=== PATIENT | female | born 1950 | race Caucasian/White ===

== ENCOUNTER 2020-08-05 14:33 | Outpatient (CLI) | payer MEDICARE, OTHER, SELFPAY ==
--- NOTE | ~2020-08-05 | DEXA_ITS ---
Bone Density Report Name: Natasha Salas Age: 70 Sex: Female Ethnicity: White Date of : 1950 Indication: osteopenia; Referring Provider: Tim Cheatham Study: Bone densitometry was performed. Exam Date: August 05, 2020 Accession number: [id number] Bone Density: Region BMD T-score Z-score Classification AP Spine (L1-L4) 0.819 -2.1 -0.1 Osteopenia Femoral Neck (Left) 0.913 0.6 2.3 Normal Total Hip (Left) 0.963 0.2 1.6 Normal Total Hip Bilateral Avg 0.941 0.0 1.4 Normal Femoral Neck (Right) 0.764 -0.8 0.9 Normal Total Hip (Right) 0.918 -0.2 1.2 Normal World Health Organization criteria for BMD impression classify patients as: Normal (T-score at or above -1.0), Osteopenia (T-score between -1.0 and -2.5), or Osteoporosis (T-score at or below -2.5). 10-year Fracture Risk(1): Major Osteoporotic Fracture 7.9% Hip Fracture 0.6% Reported Risk Factors: [place] (), Neck BMD=0.764, BMI=30.7 (1) FRAX(R) Version 3.08. Fracture probability calculated for an untreated patient. Fracture probability may be lower if the patient has received treatment. Previous Exams: Region Exam Age BMD T-score BMD Change BMD Change Date g/cm2 vs Baseline vs Previous AP Spine(L1-L4) 08/05/2020 70 0.819 -2.1 -0.059(-6.8%)# -0.003(-0.4%) 09/07/2016 66 0.822 -2.0 -0.057(-6.4%)# -0.016(-1.9%) 02/12/2014 63 0.838 -1.9 -0.040(-4.6%)# -0.040(-4.6%)# 11/11/2010 60 0.878 -1.5 Total Hip(Left) 08/05/2020 70 0.963 0.2 -0.044(-4.4%)# 0.025(2.7%) 09/07/2016 66 0.937 0.0 -0.069(-6.9%)# -0.042(-4.3%)* 02/12/2014 63 0.979 0.3 -0.028(-2.8%)# -0.028(-2.8%)# 11/11/2010 60 1.006 0.5 Total Hip(Right) 08/05/2020 70 0.918 -0.2 -0.010(-1.1%)# 0.014(1.6%) 09/07/2016 66 0.904 -0.3 -0.025(-2.6%)# -0.024(-2.5%) 02/12/2014 63 0.927 -0.1 -0.001(-0.1%)# -0.001(-0.1%)# 11/11/2010 60 0.928 -0.1 *Denotes significance at 95% confidence level, LSC for AP Spine = 0.022 g/cm2, LSC for Total Hip = 0.027 g/cm2 Clinical Information Provided by Patient: Has used the following medications: Vitamin D Patient maximum height was 68.5 Menopause Age: 41 No regular weight bearing exercise Does not regularly consume dairy products Drinks caffeinated beverages Onset of menses at age 13 Number of children 4 Impression: The patient has low bone mass, based on the Total Spine T-score. The patient has an estima
--- NOTE | ~2020-08-05 | MM_ITS ---
EXAMINATION: MM screening [facility] BI w jean-pierre HISTORY: Screening TECHNIQUE: Craniocaudal and mediolateral oblique 3-D tomosynthesis images were obtained and synthetic 2-D images were generated. CAD analysis was submitted and interpreted. COMPARISON: Comparison to multiple prior studies sequentially, with oldest reviewed study dated 12/28. BREAST PARENCHYMAL COMPOSITION: There are scattered areas of fibroglandular density. FINDINGS: There is no evidence of suspicious mass, calcification, or architectural distortion to sugg est malignancy in either breast. There has been no suspicious interval change. IMPRESSION: 1. No mammographic evidence of malignancy. 2. Recommend routine screening mammography in one year. BI-RADS Category 1: Negative Reviewed, dictated and finalized at location A. K STENOGRAPHER
== END 2020-08-05 14:34 | disposition home or self-care (01) ==
LOC: ANHIMG 14:38
PROVIDERS: PCP Family Medicine; Visit Provider Physician Assistant
DX: Z12.31 Encounter for screening mammogram for malignant neoplasm of breast (principal); Z78.0 Asymptomatic menopausal state; M85.88 Other specified disorders of bone density and structure, other site
CPT/HCPCS: 77063; 77067; 77080

== ENCOUNTER 2023-05-09 09:36 | Emergency (ER) | payer MEDICARE, OTHER, SELFPAY ==
[2023-05-09 10:01] VITALS: BP 160/84; PULSE 88; RESP 16; TEMP 36.3; O2SAT 99
--- NOTE | 2023-05-09 11:08 | ED.LOWEXIN ---
HPI - Extremity Injury (Lower) General Chief Complaint: Extremity Injury, Lower Stated Complaint: Injured knee Time Seen by Provider: 05/09/23 11:08 Source: patient, RN notes reviewed and old records reviewed Mode of arrival: ambulatory Limitations: no limitations History of Present Illness HPI Narrative: 72-year-old female presents to the [facility] with complaints of right knee pain since Tuesday. Patient states that she was on the elliptical working out and listening to music. States that she got a little excited and started dancing, felt a pull in swelling in her knee. Has been icing it. 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 Related Data Home Medications Medication Instructions Recorded Confirmed cholecalciferol (vitamin D3) 25 25 mcg PO DAILY 05/12/21 05/09/23 mcg (1,000 unit) capsule multivitamin (Daily Multi-Vitamin 2 tablet PO DAILY 02/01/22 05/09/23 tablet) Allergies Allergy/AdvReac Type Severity Reaction Status Date / Time No Known Allergies Allergy Verified 05/09/23 10:02 Review of Systems Review of Systems: All systems reviewed & are unremarkable except as noted in HPI and below Constitutional: Constitutional: Reports no additional constitutional complaints Eyes: Eyes: Reports no additional eye complaints ENT: Reports system reviewed and no additional complaints, except as documented Cardiovascular: Cardiovascular: Reports no additional cardiovascular complaints, Denies chest pain and Denies dyspnea Respiratory: Respiratory: Reports no additional respiratory complaints, Denies chest congestion, Denies cough and Denies dyspnea Gastrointestinal: Gastrointestinal: Reports no additional gastrointestinal complaints, Denies abdominal pain, Denies nausea and Denies vomiting Musculoskeletal: Musculoskeletal: Reports as per HPI, Reports arthralgias and Reports joint swelling Integumentary/Breasts: Skin/Breast: Reports system reviewed and no additional complaints, except as docu Neurologic: Reports system reviewed and no additional complaints, except as documented Psychiatric: Psychiatric: Reports no additional psychiatric complaints Allergic/Immunologic: Allergic/Immunologic: Reports no additional allergic/immunologic complaints PMFSH Past Medical History Medical History Cerumen impaction Eustachian tube dysfunction Gastroenteritis Lumbar radiculopathy Need for hepatitis C screening test Primary osteoarthritis of right hip Primary osteoarthritis of right knee Surgical History Surgical History History of cataract surgery (~01/2021) Hx of cataract surgery (~02/2021) Family History Family History Mother Diabetes mellitus Family history of osteoporosis Hypertension Family history of cardiovascular disease Family history of coronary artery disease Father Family history of alcoholism, Onset Age: 57 Family history of liver disease, Onset Age: 57 Family history of hepatitis, Onset Age: 57 Family history of kidney disease, Onset Age: 57 Sibling Acute myocardial infarction, Onset Age: 60 Social History Social History Social History: Caffeine-coffee daily Smoking status: Never smoker Alcohol intake: current Drinks per week: 7 Lack of Transportation: No Lack of Food: Never True Current Housing: I Have Housing Concerned About Future Housing: No Difficulty Paying Gas/Electric Bills: No Difficulty Paying for Meds: No Currently Unemployed: No Education: High School Diploma/GED Difficulty w/ Childcare or Family Care: No Comments At the time of my signature, I reviewed and agree with the nursing past medical, surgical, social, and family history. There is
== END 2023-05-09 11:31 | disposition home or self-care (01) ==
PROVIDERS: Emergency Provider Nurse Practitioner; PCP Internal Medicine
DX: M25.461 Effusion, right knee (principal); M17.11 Unilateral primary osteoarthritis, right knee; M16.11 Unilateral primary osteoarthritis, right hip
CPT/HCPCS: 99211; G0463

== ENCOUNTER 2023-05-23 13:40 | Emergency (ER) | payer MEDICARE, OTHER, SELFPAY ==
[2023-05-23 13:50] VITALS: BP 159/97; PULSE 74; RESP 18; TEMP 36.1; O2SAT 100
[2023-05-23 13:53] VITALS: BP 159/97; PULSE 74; RESP 18; TEMP 36.1; O2SAT 100
--- NOTE | 2023-05-23 14:10 | ED.URI ---
HPI - URI/Sore Throat General Chief Complaint: Upper Respiratory Infection Stated Complaint: SINUS CONGESITON Time Seen by Provider: 05/23/23 14:06 Source: patient and RN notes reviewed Mode of arrival: ambulatory Limitations: no limitations History of Present Illness HPI Narrative: Patient presents today with a 10 day history of nasal congestion, cough, postnasal drip, rhinorrhea, sinus pressure, sneezing. Denies fever shortness of breath. Symptoms have been worsening since onset. Denies history of asthma or COPD. She has been using DayQuil and NyQuil without much relief. She is a nonsmoker. No recent antibiotic use. Related Data Home Medications Medication Instructions Recorded Confirmed cholecalciferol (vitamin D3) 25 25 mcg PO DAILY 05/12/21 05/23/23 mcg (1,000 unit) capsule multivitamin (Daily Multi-Vitamin 2 tablet PO DAILY 02/01/22 05/23/23 tablet) Allergies Allergy/AdvReac Type Severity Reaction Status Date / Time No Known Allergies Allergy Verified 05/23/23 13:53 Review of Systems Review of Systems: CONSTITUTIONAL: Denies body aches, fever, chills, or sweats. EYES: Denies visual changes, redness, or discharge. ENT: Denies sore throat, or otalgia.+ congestion, rhinorrhea, sneezing, sinus pressure, postnasal drip CARDIOVASCULAR: Denies chest pain, palpitations, or edema. RESPIRATORY: Denies dyspnea.+ cough GASTROINTESTINAL: Denies abdominal pain, nausea, vomiting, or diarrhea. GENITOURINARY: Denies dysuria or hematuria. SKIN: Denies rash, itching, or wounds. MUSCULOSKELETAL: Denies back pain, joint pain, or myalgia. NEUROLOGIC: Denies headache, numbness, tingling, or weakness. PSYCH: Denies depression or anxiety. [facility] Past Medical History Medical History Cerumen impaction Eustachian tube dysfunction Gastroenteritis Lumbar radiculopathy Need for hepatitis C screening test Primary osteoarthritis of right hip Primary osteoarthritis of right knee Surgical History Surgical History History of cataract surgery (~01/2021) Hx of cataract surgery (~02/2021) Family History Family History Mother Diabetes mellitus Family history of osteoporosis Hypertension Family history of cardiovascular disease Family history of coronary artery disease Father Family history of alcoholism, Onset Age: 57 Family history of liver disease, Onset Age: 57 Family history of hepatitis, Onset Age: 57 Family history of kidney disease, Onset Age: 57 Sibling Acute myocardial infarction, Onset Age: 60 Social History Social History Social History: Caffeine-coffee daily Smoking status: Never smoker Alcohol intake: current Drinks per week: 7 Lack of Transportation: No Lack of Food: Never True Current Housing: I Have Housing Concerned About Future Housing: No Difficulty Paying Gas/Electric Bills: No Difficulty Paying for Meds: No Currently Unemployed: No Education: High School Diploma/GED Difficulty w/ Childcare or Family Care: No Comments At time of signature, I have reviewed and agree with nursing past medical, surgical, social and family history unless otherwise noted. Please see nursing chart for further information. There is no relevant family history pertinent to the presenting complaint Exam Narrative: GENERAL: Mildly ill-appearing, well-nourished, and in no acute distress. HEAD: Normocephalic, atraumatic. EYES: EOMI. No redness or drainage. Conjunctivae normal. ENT: Mucous membranes pink and moist. Nares congested. No rhinorrhea. TMs normal bilaterally. Throat normal. Uvula midline. Bilateral frontal and maxillary sinus tenderness. NECK: Normal AROM. Supple. No lymphadenopathy. CHEST: No resp
== END 2023-05-23 14:17 | disposition home or self-care (01) ==
PROVIDERS: Emergency Provider Nurse Practitioner; PCP Internal Medicine
DX: J01.90 Acute sinusitis, unspecified (principal)
CPT/HCPCS: 99213; G0463

== ENCOUNTER 2023-05-29 11:39 | Emergency (ER) | payer MEDICARE, OTHER, SELFPAY ==
[2023-05-29 12:06] VITALS: BP 137/90; PULSE 84; RESP 16; TEMP 36.3; O2SAT 99
--- NOTE | 2023-05-29 12:22 | ED.URI ---
HPI - URI/Sore Throat General Chief Complaint: Upper Respiratory Infection Stated Complaint: Sinus Infection Time Seen by Provider: 05/29/23 12:21 Source: patient, RN notes reviewed and old records reviewed Mode of arrival: ambulatory Limitations: no limitations History of Present Illness HPI Narrative: 72-year-old female presents to [facility] with complaints of sinus congestion and sinus pressure, headache, yellow drainage from nose that started 2 weeks ago. Patient seen at this at [facility] on Tuesday and given Augmentin, patient states no matter. Related Data Home Medications Medication Instructions Recorded Confirmed cholecalciferol (vitamin D3) 25 25 mcg PO DAILY 05/12/21 05/29/23 mcg (1,000 unit) capsule multivitamin (Daily Multi-Vitamin 2 tablet PO DAILY 02/01/22 05/29/23 tablet) Allergies Allergy/AdvReac Type Severity Reaction Status Date / Time No Known Allergies Allergy Verified 05/29/23 12:23 Review of Systems Constitutional: Constitutional: Reports no additional constitutional complaints Eyes: Eyes: Reports no additional eye complaints ENT: Reports as per HPI, Reports facial pain, Reports headache(s), Reports nasal congestion, Reports nasal discharge, Reports post nasal drip, Reports sinus pain and Reports sinus pressure Cardiovascular: Cardiovascular: Reports no additional cardiovascular complaints Respiratory: Respiratory: Reports no additional respiratory complaints Neurologic: Reports system reviewed and no additional complaints, except as documented [facility] Past Medical History Medical History Cerumen impaction Eustachian tube dysfunction Gastroenteritis Lumbar radiculopathy Need for hepatitis C screening test Primary osteoarthritis of right hip Primary osteoarthritis of right knee Surgical History Surgical History History of cataract surgery (~01/2021) Hx of cataract surgery (~02/2021) Family History Family History Mother Diabetes mellitus Family history of osteoporosis Hypertension Family history of cardiovascular disease Family history of coronary artery disease Father Family history of alcoholism, Onset Age: 57 Family history of liver disease, Onset Age: 57 Family history of hepatitis, Onset Age: 57 Family history of kidney disease, Onset Age: 57 Sibling Acute myocardial infarction, Onset Age: 60 Social History Social History Social History: Caffeine-coffee daily Smoking status: Never smoker Alcohol intake: current Drinks per week: 7 Lack of Transportation: No Lack of Food: Never True Current Housing: I Have Housing Concerned About Future Housing: No Difficulty Paying Gas/Electric Bills: No Difficulty Paying for Meds: No Currently Unemployed: No Education: High School Diploma/GED Difficulty w/ Childcare or Family Care: No Comments At the time of my signature, I reviewed and agree with the nursing past medical, surgical, social, and family history. There is no relevant family history pertinent to the patient complaint. Exam Const: General: cooperative, no acute distress, ill appearing and well nourished Nutritional Appearance: well nourished Orientation/consciousness: patient oriented x3 Limitations: no limitations HENMT: Head: normal to inspection and normocephalic Ears: external ears normal, TM's normal bilaterally, mastoids normal and Abnormal EAC present Face/Nose/Sinus: Normal external nose present, Abnormal mucous membranes and turbinates present (Swelling noted), Nasal discharge present, edema, sinus tenderness and Facial tenderness on exam of face and sinuses Face and sinus: normal facial exam and sinus tenderness Mouth: Yes Normal oral and palatal mucosa present, Yes
== END 2023-05-29 12:39 | disposition home or self-care (01) ==
PROVIDERS: Emergency Provider Registered Nurse; PCP Internal Medicine
DX: J01.90 Acute sinusitis, unspecified (principal); M16.11 Unilateral primary osteoarthritis, right hip; M17.11 Unilateral primary osteoarthritis, right knee
CPT/HCPCS: 99213; G0463

== ENCOUNTER 2023-06-03 09:34 | Outpatient (CLI) | payer MEDICARE, OTHER, SELFPAY ==
[2023-06-03 13:16] LABS: Anion Gap 10 mmol/L (8-16); Blood Urea Nitrogen 18 mg/dL (7-17); Calcium 10.1 mg/dL (8.4-10.2); Carbon Dioxide 26 mmol/L (22-30); Chloride 104 mmol/L (98-107); Estimated Glomerular Filt Rate > 60; Glucose 85 mg/dL (65-110); Potassium 4.1 mmol/L (3.4-5.0); Sodium 140 mmol/L (137-145)
== END 2023-06-03 09:35 | disposition home or self-care (01) ==
LOC: ANHGOSHLAB 09:37
PROVIDERS: PCP Internal Medicine; Visit Provider Clinical Nurse Specialist
DX: I10 Essential (primary) hypertension (principal)
CPT/HCPCS: 36415; 80048

== ENCOUNTER 2023-06-30 00:46 | Day surgery (SDC) | payer MEDICARE, OTHER, SELFPAY ==
[2023-06-08 15:09] VITALS: BMI 30.4
--- NOTE | 2023-06-28 12:11 | SUR.PREOP ---
Patient called regarding upcoming procedure. Reviewed preop instructions, appointment times, and procedure prep.
[2023-06-30 06:26] VITALS: BP 116/82; PULSE 86; RESP 18; TEMP 36.2; O2SAT 100; BMI 31.1
[2023-06-30] MEDS: LACTATED RINGERS 1,000 ML 150 ML IV CONT (06:39)
--- NOTE | 2023-06-30 07:20 | WPDANESEPPF ---
Anes - Initial Pre Proc Eval Procedure: Operation Date: 06/30/23 07:30 Proposed Procedures p Screening Colonoscopy - Franck Henning MD Date/Time: 06/30/23 07:20 Surgeon: Franck Henning MD Pre Op Diagnosis: neoplasm screening Patient Data Age: 73 Gender: F Height: 1.73 m Weight: 92.8 kg Last Vital Signs Temp 97.1 F L 06/30/23 06:26 Pulse 86 06/30/23 06:26 Resp 18 06/30/23 06:26 BP 116/82 06/30/23 06:26 Pulse Ox 100 06/30/23 06:26 O2 Del Method Room Air 06/30/23 06:26 Allergies Allergy/AdvReac Type Severity Reaction Status Date / Time No Known Allergies Allergy Verified 06/30/23 06:23 Home Medications Medication Instructions Recorded Confirmed Type cholecalciferol (vitamin D3) 25 25 mcg PO DAILY 05/12/21 06/30/23 History mcg (1,000 unit) capsule multivitamin (Daily Multi-Vitamin 2 tablet PO DAILY 02/01/22 06/30/23 History tablet) lisinopril 5 mg tablet 5 mg PO DAILY #90 tabs 05/18/23 06/30/23 Rx semaglutide 2 mg/dose (8 mg/3 mL) 2 mg subcut WEEKLY 06/03/23 06/30/23 History subcutaneous pen injector atorvastatin 20 mg tablet 20 mg PO DAILY 06/08/23 06/30/23 History fluticasone propionate 50 2 spray intranasal DAILY #16 grams 06/23/23 06/30/23 Rx mcg/actuation nasal spray,suspension (Flonase Allergy Relief) Patient hx anesthesia problems: none Family hx anesthesia problems: none Results Review: All pre-operative results and documents have been reviewed as part of the pre-operative evaluation. [facility] Past Medical History Medical History (Updated 06/06/23 @ 10:25 by MTAEO Rodriguez) Cerumen impaction Encounter for screening mammogram for breast cancer Eustachian tube dysfunction Gastroenteritis Lumbar radiculopathy Need for hepatitis C screening test Obesity (BMI 30.0-34.9) Primary osteoarthritis of right hip Primary osteoarthritis of right knee Screening for osteoporosis Surgical History Surgical History History of cataract surgery (~01/2021) Hx of cataract surgery (~02/2021) Family History Family History Mother Diabetes mellitus Family history of osteoporosis Hypertension Family history of cardiovascular disease Family history of coronary artery disease Father Family history of alcoholism, Onset Age: 57 Family history of liver disease, Onset Age: 57 Family history of hepatitis, Onset Age: 57 Family history of kidney disease, Onset Age: 57 Sibling Acute myocardial infarction, Onset Age: 60 Social History Social History Social History: Caffeine-coffee daily Smoking status: Never smoker Alcohol intake: current Drinks per week: 3 Alcohol use details: wine Substance use type: does not use Lack of Transportation: No Lack of Food: Never True Current Housing: I Have Housing Concerned About Future Housing: No Difficulty Paying Gas/Electric Bills: No Difficulty Paying for Meds: No Currently Unemployed: No Education: High School Diploma/GED Difficulty w/ Childcare or Family Care: No Living arrangements: with family Anes - Evrgioberto Final PreProcedure Day of Procedure 06/30/23 07:20 Patient weight: obese Heart: regular rate and rhythm Lungs: clear to auscultation Airway: Mallampati scale class II Neurological: alert and oriented Last oral intake: >/= 8 hours ASA classification: III Emergent: no Anesthetic plan: proceed Anesthesia type and monitoring: general GIVS and standard monitoring Results Review: All pre-operative results and documents have been reviewed as part of the pre-operative evaluation. Informed Consent: The patient's anesthetic plan and its attendant risks and benefits were discussed with the patient/family/POA. Questions were solicited and answers provided to the satisfaction
--- NOTE | 2023-06-30 07:24 | PM.HPGS ---
History of Present Illness History of Present Illness Consent: Risks, benefits, and alternatives have been discussed and questions answered. Patient agrees to proceed with procedure. Chief complaint: neoplasm screening Narrative: Natasha Salas is a 73 year old female Presents for screening colonoscopy. Patient's current weight appetite and bowel movements are normal. Patient denies abdominal pain. She has had no bleeding. Family history noncontributory. Previous colonoscopy 10 years ago was unremarkable. Review of Systems Review of Systems: Review of systems noncontributory. [facility] Past Medical History Medical History (Updated 06/30/23 @ 07:25 by Franck Henning MD) Cerumen impaction Encounter for screening mammogram for breast cancer Eustachian tube dysfunction Gastroenteritis Lumbar radiculopathy Need for hepatitis C screening test Obesity (BMI 30.0-34.9) Primary osteoarthritis of right hip Primary osteoarthritis of right knee Screening for osteoporosis Surgical History Surgical History History of cataract surgery (~01/2021) Hx of cataract surgery (~02/2021) Family History Family History Mother Diabetes mellitus Family history of osteoporosis Hypertension Family history of cardiovascular disease Family history of coronary artery disease Father Family history of alcoholism, Onset Age: 57 Family history of liver disease, Onset Age: 57 Family history of hepatitis, Onset Age: 57 Family history of kidney disease, Onset Age: 57 Sibling Acute myocardial infarction, Onset Age: 60 Social History Social History Social History: Caffeine-coffee daily Smoking status: Never smoker Alcohol intake: current Drinks per week: 3 Alcohol use details: wine Substance use type: does not use Lack of Transportation: No Lack of Food: Never True Current Housing: I Have Housing Concerned About Future Housing: No Difficulty Paying Gas/Electric Bills: No Difficulty Paying for Meds: No Currently Unemployed: No Education: High School Diploma/GED Difficulty w/ Childcare or Family Care: No Living arrangements: with family Meds Home Medications and Allergies Home Medications Medication Instructions Recorded Confirmed Type cholecalciferol (vitamin D3) 25 25 mcg PO DAILY 05/12/21 06/30/23 History mcg (1,000 unit) capsule multivitamin (Daily Multi-Vitamin 2 tablet PO DAILY 02/01/22 06/30/23 History tablet) lisinopril 5 mg tablet 5 mg PO DAILY #90 tabs 05/18/23 06/30/23 Rx semaglutide 2 mg/dose (8 mg/3 mL) 2 mg subcut WEEKLY 06/03/23 06/30/23 History subcutaneous pen injector atorvastatin 20 mg tablet 20 mg PO DAILY 06/08/23 06/30/23 History fluticasone propionate 50 2 spray intranasal DAILY #16 grams 06/23/23 06/30/23 Rx mcg/actuation nasal spray,suspension (Flonase Allergy Relief) Allergies Allergy/AdvReac Type Severity Reaction Status Date / Time No Known Allergies Allergy Verified 06/30/23 06:23 Vital Signs Vital Signs - 24 hr 06/30/23 06:26 Temperature 97.1 F L Pulse Rate 86 Respiratory Rate 18 Blood Pressure 116/82 Pulse Oximetry 100 Oxygen Delivery Room Air Exam Narrative: Physical exam reveals patient to be alert. Vital signs stable. HEENT exam is unremarkable. Patient is anicteric. Lungs are clear to auscultation and percussion. Heart is without murmur or extra sounds. Abdomen bowel sounds are present soft nontender with no organomegaly. Digital external rectal exam is normal. Assessment and Plan Assessment and plan (1) Encounter for screening colonoscopy: Code(s): Z12.11 - Encounter for screening for malignant neoplasm of colon Status: Acute Assessment and Plan: Patient presents for screening
[2023-06-30 07:46] VITALS: BP 129/76; PULSE 72; RESP 16; O2SAT 100
[2023-06-30 07:56] VITALS: BP 116/62; PULSE 70; RESP 18; O2SAT 100
[2023-06-30 08:06] VITALS: BP 113/73; PULSE 68; RESP 18; O2SAT 100
== END 2023-06-30 08:17 | disposition home or self-care (01) ==
PROVIDERS: PCP Internal Medicine; Visit Provider Internal Medicine Gastroenterology
PROC: 0DJD8ZZ Inspection of Lower Intestinal Tract, Via Natural or Artificial Opening Endoscopic (ICD-10-PCS; CPT 45378; principal; 2023-06-30 07:30)
DX: Z12.11 Encounter for screening for malignant neoplasm of colon (principal); K64.8 Other hemorrhoids; K57.30 Diverticulosis of large intestine without perforation or abscess without bleeding; E66.9 Obesity, unspecified; Z68.31 Body mass index [BMI] 31.0-31.9, adult
CPT/HCPCS: G0121; J2704; J7120

== ENCOUNTER 2023-07-11 13:48 | Outpatient (CLI) | payer MEDICARE, OTHER, SELFPAY ==
--- NOTE | ~2023-07-11 | MM_ITS ---
EXAMINATION: MM screening [facility] BI w jean-pierre HISTORY: Screening mammogram TECHNIQUE: Craniocaudal and mediolateral oblique 3-D tomosynthesis images were obtained and synthetic 2-D images were generated. CAD analysis was submitted and interpreted. COMPARISON: 08/05/2020, 09/07/2016, 02/13/2015 BREAST PARENCHYMAL COMPOSITION: There are scattered areas of fibroglandular density. FINDINGS: No suspicious mass, calcification, or architectural distortion are identified in either tello ast to suggest malignancy. There has been no suspicious interval change. IMPRESSION: 1. No mammographic evidence of malignancy. 2. Recommend routine screening mammography in one year. BI-RADS Category 1: Negative Reviewed, dictated and finalized at location A.
--- NOTE | ~2023-07-11 | DEXA_ITS ---
Bone Density Report Name: BOBBY SIMPSON Age: 73 Sex: Female Ethnicity: White Date of : 1950 Indication: osteopenia; height loss; postmenopausal Referring Provider: LOIS CHAPA Study: Bone densitometry was performed. Exam Date: July 11, 2023 Accession number: [id number] Bone Density: Region BMD T-score Z-score Classification AP Spine(L1-L4) 0.800 -2.2 -0.1 Osteopenia Femoral Neck (Left) 0.883 0.3 2.2 Normal Total Hip (Left) 0.949 0.1 1.6 Normal Femoral Neck (Right) 0.749 -0.9 1.0 Normal Total Hip (Right) 0.890 -0.4 1.1 Normal Total Hip Mean 0.920 -0.2 1.4 Normal World Health Organization criteria for BMD impression classify patients as: Normal (T-score at or above -1.0), Osteopenia (T-score between -1.0 and -2.5), or Osteoporosis (T-score at or below -2.5). 10-year Fracture Risk(1): Major Osteoporotic Fracture 8.4% Hip Fracture 0.8% Reported Risk Factors: [place] (), Neck BMD=0.749, BMI=32.4 (1) FRAX(R) Version 3.08. Fracture probability calculated for an untreated patient. Fracture probability may be lower if the patient has received treatment. Previous Exams: Region Exam Age BMD T-score BMD Change BMD Change Date g/cm2 vs Baseline vs Previous AP Spine (L1-L4) 07/11/2023 73 0.800 -2.2 -0.038 (-4.6%) -0.019 (-2.4%) 08/05/2020 70 0.819 -2.1 -0.019 (-2.3%) -0.003 (-0.4%) 09/07/2016 66 0.822 -2.0 -0.016 (-1.9%) -0.016 (-1.9%) 02/12/2014 63 0.838 -1.9 Total Hip(Left) 07/11/2023 73 0.949 0.1 -0.030 (-3.0%) -0.013 (-1.4%) 08/05/2020 70 0.963 0.2 -0.016 (-1.7%) 0.025 (2.7%) 09/07/2016 66 0.937 0.0 -0.042 (-4.3%) -0.042 (-4.3%) 02/12/2014 63 0.979 0.3 Total Hip(Right) 07/11/2023 73 0.890 -0.4 -0.037 (-4.0%) -0.028 (-3.0%) 08/05/2020 70 0.918 -0.2 -0.009 (-1.0%) 0.014 (1.6%) 09/07/2016 66 0.904 -0.3 -0.024 (-2.5%) -0.024 (-2.5%) 02/12/2014 63 0.927 -0.1 *Denotes significance at 95% confidence level, LSC for AP Spine = 0.022 g/cm2, LSC for Total Hip = 0.027 g/cm2 Clinical Information Provided by Patient: Has used the following medications: Vitamin D Patient maximum height was 68.5 Menopause Age: 40 Drinks caffeinated beverages Onset of menses at age 13 Number of children 4 Impression: The patient has low bone mass, based on the Total Spine T-score. The patient has an estimated ten-year risk of hip fracture
== END 2023-07-11 13:49 | disposition home or self-care (01) ==
LOC: ANHIMG 13:51
PROVIDERS: PCP Internal Medicine; Visit Provider Clinical Nurse Specialist
DX: Z12.31 Encounter for screening mammogram for malignant neoplasm of breast (principal); Z78.0 Asymptomatic menopausal state; M85.88 Other specified disorders of bone density and structure, other site
CPT/HCPCS: 77063; 77067; 77080

== ENCOUNTER 2023-08-16 08:50 | Emergency (ER) | payer MEDICARE, OTHER, SELFPAY ==
[2023-08-16 08:57] VITALS: BP 117/71; PULSE 102; RESP 16; TEMP 36.6; O2SAT 100
--- NOTE | 2023-08-16 09:12 | ED.FEMALEGU ---
HPI - Female Genitourinary General Chief complaint: Urogenital-Female Stated complaint: Uti symptoms;Strep symptoms Time Seen by Provider: 08/16/23 09:13 Source: patient and RN notes reviewed Mode of arrival: ambulatory Limitations: no limitations History of Present Illness HPI Narrative: 73-year-old female presents with multiple complaints. She reports about 5 days ago she began having malaise, malodorous urine, urinary urgency, she increased her water intake. She reports on Tuesday she began having cough, runny nose, sore throat. She reports sinus pressure and postnasal drainage. 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 MD elicited complaint: UTI Related Data Home Medications Medication Instructions Recorded Confirmed cholecalciferol (vitamin D3) 25 25 mcg PO DAILY 05/12/21 08/16/23 mcg (1,000 unit) capsule multivitamin (Daily Multi-Vitamin 2 tablet PO DAILY 02/01/22 08/16/23 tablet) atorvastatin 20 mg tablet 20 mg PO DAILY 06/08/23 08/16/23 Allergies Allergy/AdvReac Type Severity Reaction Status Date / Time No Known Allergies Allergy Verified 08/16/23 09:37 Review of Systems Review of Systems: CONSTITUTIONAL: Denies malaise, chills, sweats, or fever. CARDIOVASCULAR: Denies chest pain, palpitations, or edema. HEENT: Reports sore throat, rhinorrhea, nasal congestion postnasal drainage RESPIRATORY: Reports cough. Denies dyspnea. GASTROINTESTINAL: Denies abdominal pain, nausea, vomiting, diarrhea GENITOURINARY: Reports mild odorous urine, frequency. Denies dysuria urgency, suprapubic pressure. Denies flank pain or hematuria. SKIN: Denies rash or itching. MUSCULOSKELETAL: Denies back pain or myalgia. All systems reviewed & are unremarkable except as noted in HPI and below PMFSH Past Medical History Medical History (Updated 08/16/23 @ 09:41 by Prudence Paniagua NP) Cerumen impaction Encounter for screening mammogram for breast cancer Eustachian tube dysfunction Gastroenteritis Lumbar radiculopathy Need for hepatitis C screening test Obesity (BMI 30.0-34.9) Primary osteoarthritis of right hip Primary osteoarthritis of right knee Screening for osteoporosis Surgical History Surgical History History of cataract surgery (~01/2021) Hx of cataract surgery (~02/2021) Family History Family History Mother Diabetes mellitus Family history of osteoporosis Hypertension Family history of cardiovascular disease Family history of coronary artery disease Father Family history of alcoholism, Onset Age: 57 Family history of liver disease, Onset Age: 57 Family history of hepatitis, Onset Age: 57 Family history of kidney disease, Onset Age: 57 Sibling Acute myocardial infarction, Onset Age: 60 Social History Social History Social History: Caffeine-coffee daily Smoking status: Never smoker Alcohol intake: current Drinks per week: 3 Alcohol use details: wine Substance use type: does not use Lack of Transportation: No Lack of Food: Never True Current Housing: I Have Housing Concerned About Future Housing: No Difficulty Paying Gas/Electric Bills: No Difficulty Paying for Meds: No Currently Unemployed: No Education: High School Diploma/GED Difficulty w/ Childcare or Family Care: No Living arrangements: with family Comments At time of signature, agree with nursing past medical, surgical, social and family history. There is no relevant family history pertinent to the presenting complaint Exam Narrative: GENERAL: Well-appearing, well-nourished, and in no acute distress. HEAD: Normocephalic EYES: PERRLA, conjunctivae clear ENT: Nares clear, clear discharge. Mucous membranes moist. TM pearly ewing with sharp light reflex bilaterally; no tragal tenderness. Oropharynx more erythematous wi
== END 2023-08-16 09:45 | disposition home or self-care (01) ==
PROVIDERS: Emergency Provider Nurse Practitioner; PCP Internal Medicine
DX: N39.0 Urinary tract infection, site not specified (principal); U07.1 COVID-19; Z20.822 Contact with and (suspected) exposure to COVID-19
CPT/HCPCS: 81003; 87081; 87086; 87426; 87804; 87880; 99213; G0463

== ENCOUNTER 2023-11-07 08:36 | Emergency (ER) | payer MEDICARE, OTHER, SELFPAY ==
--- NOTE | 2023-11-07 08:44 | ED.URI ---
HPI - URI/Sore Throat General Chief Complaint: Upper Respiratory Infection Stated Complaint: Sore Throat/Cough Time Seen by Provider: 11/07/23 09:00 Source: patient, RN notes reviewed and old records reviewed Mode of arrival: ambulatory Limitations: no limitations History of Present Illness HPI Narrative: 73-year-old female presents to the [facility] with complaints of sore throat, dry cough, sinus pain and pressure both maxillary and frontal. States symptoms have been for over a week. 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 Has tried multiple [id number] products which she states is not working. Today symptoms got worse. Onset (ago): week(s) (Over 1 week) Treatments prior to arrival: cold medicine Related Data Home Medications Medication Instructions Recorded Confirmed cholecalciferol (vitamin D3) 25 25 mcg PO DAILY 05/12/21 11/07/23 mcg (1,000 unit) capsule multivitamin (Daily Multi-Vitamin 2 tablet PO DAILY 02/01/22 11/07/23 tablet) Allergies Allergy/AdvReac Type Severity Reaction Status Date / Time No Known Allergies Allergy Verified 08/16/23 09:37 Review of Systems Review of Systems: All systems reviewed & are unremarkable except as noted in HPI and below Constitutional: Constitutional: Reports no additional constitutional complaints Eyes: Eyes: Reports no additional eye complaints ENT: Reports as per HPI, Reports nasal congestion and Reports sore throat Cardiovascular: Cardiovascular: Reports no additional cardiovascular complaints, Denies chest pain and Denies dyspnea Respiratory: Respiratory: Reports as per HPI, Denies chest congestion, Reports cough and Denies dyspnea Gastrointestinal: Gastrointestinal: Reports no additional gastrointestinal complaints, Denies abdominal pain, Denies nausea and Denies vomiting Musculoskeletal: Musculoskeletal: Reports no additional musculoskeletal complaints Integumentary/Breasts: Skin/Breast: Reports system reviewed and no additional complaints, except as docu Neurologic: Reports system reviewed and no additional complaints, except as documented Psychiatric: Psychiatric: Reports no additional psychiatric complaints Allergic/Immunologic: Allergic/Immunologic: Reports no additional allergic/immunologic complaints PMFSH Past Medical History Medical History Cerumen impaction Encounter for screening mammogram for breast cancer Eustachian tube dysfunction Gastroenteritis Lumbar radiculopathy Need for hepatitis C screening test Obesity (BMI 30.0-34.9) Primary osteoarthritis of right hip Primary osteoarthritis of right knee Screening for osteoporosis Surgical History Surgical History History of cataract surgery (~01/2021) Hx of cataract surgery (~02/2021) Family History Family History Mother Diabetes mellitus Family history of osteoporosis Hypertension Family history of cardiovascular disease Family history of coronary artery disease Father Family history of alcoholism, Onset Age: 57 Family history of liver disease, Onset Age: 57 Family history of hepatitis, Onset Age: 57 Family history of kidney disease, Onset Age: 57 Sibling Acute myocardial infarction, Onset Age: 60 Social History Social History Social History: Caffeine-coffee daily Smoking status: Never smoker Alcohol intake: current Drinks per week: 3 Alcohol use details: wine Substance use type: does not use Lack of Transportation: No Lack of Food: Never True Current Housing: I Have Housing Concerned About Future Housing: No Difficulty Paying Gas/Electric Bills: No Difficulty Paying for Meds: No Currently Unemployed: No Education: High School Diploma/GED Difficulty w/ Childcare or Family Care: No Living arrangem
[2023-11-07 08:48] VITALS: BP 119/91; PULSE 85; RESP 16; TEMP 36.2; O2SAT 100
== END 2023-11-07 09:16 | disposition home or self-care (01) ==
PROVIDERS: Emergency Provider Nurse Practitioner; PCP Internal Medicine
DX: J32.9 Chronic sinusitis, unspecified (principal)
CPT/HCPCS: 87081; 87880; 99213; G0463

== ENCOUNTER 2023-12-20 08:27 | Outpatient (CLI) | payer MEDICARE, OTHER, SELFPAY ==
[2023-12-20 12:49] LABS: Basophils Absolute Auto 0.1 K/mm3 (0.0-0.1); Basophils Percent Auto 1.2 % (0.2-1.2); Eosinophils Absolute Auto 0.3 K/mm3 (0-0.3); Eosinophils Percent Auto 5.1 % (0-4.4); Hematocrit 42.6 % (37.0-47.0); Immature Granulocyte Absolute 0.01 K/mm3 (0.00-0.031); Immature Granulocyte Percent A 0.2 % (0-0.5); Lymphocytes Absolute Auto 1.52 K/mm3 (0.9-3.2); Lymphocytes Percent Auto 29.6 % (18.3-44.2); Mean Corpuscular HGB Conc 32.9 g/dl (32-36); Mean Corpuscular Hemoglobin 30.4 pg (26-34); Mean Corpuscular Volume 92.6 fl (80-100); Mean Platelet Volume 11.1 fl (7.4-10.4); Monocytes Absolute Auto 0.5 K/mm3 (0.1-0.6); Monocytes Percent Auto 9.9 % (2.6-8.5); Neutrophils Absolute Auto 2.8 K/mm3 (1.3-6.7); Platelet Count Result 263 k/mm3 (150-375); Red Cell Distribution Width 12.8 % (11.5-14.5); White Blood Count 5.1 K/mm3 (4.5-10.0)
[2023-12-20 13:15] LABS: Alanine Aminotransferase 26 U/L (6-35); Albumin Level 4.5 g/dL (3.5-5.1); Alkaline Phosphatase 67 U/L (38-126); Anion Gap 8 mmol/L (4-12); Aspartate Amino Transferase 45 U/L (14-36); Bilirubin,Total 1.5 mg/dL (0.2-1.3); Blood Urea Nitrogen 15 mg/dL (7-17); Calcium 9.7 mg/dL (8.4-10.2); Carbon Dioxide 23 mmol/L (22-30); Chloride 107 mmol/L (98-107); Cholesterol 141 mg/dL (0-200); Estimated Glomerular Filt Rate > 60; Glucose 96 mg/dL (65-110); HDL Direct 64 mg/dL; Potassium 4.1 mmol/L (3.4-5.0); Sodium 138 mmol/L (137-145); Triglycerides 138 mg/dL (<150)
[2023-12-20 13:38] LABS: LDL Cholesterol Direct 61 mg/dL
[2023-12-20 13:49] LABS: Hemoglobin A1C 5.1 % (<5.7)
[2023-12-20 14:08] LABS: Vitamin D 25 Hydroxy 62.9 ng/mL
== END 2023-12-20 08:28 | disposition home or self-care (01) ==
PROVIDERS: PCP Internal Medicine; Visit Provider Clinical Nurse Specialist
DX: E78.5 Hyperlipidemia, unspecified (principal); I10 Essential (primary) hypertension; Z13.0 Encounter for screening for diseases of the blood and blood-forming organs and certain disorders involving the immune mechanism; Z13.228 Encounter for screening for other metabolic disorders; Z13.29 Encounter for screening for other suspected endocrine disorder; E55.9 Vitamin D deficiency, unspecified; R73.01 Impaired fasting glucose
CPT/HCPCS: 36415; 80053; 80061; 82306; 83036; 84443; 85025

== ENCOUNTER 2024-01-04 07:59 | Outpatient (CLI) | payer MEDICARE, OTHER, SELFPAY ==
[2024-01-04 20:08] LABS: Alanine Aminotransferase 28 U/L (6-35); Albumin Level 4.4 g/dL (3.5-5.1); Alkaline Phosphatase 59 U/L (38-126); Anion Gap 9 mmol/L (4-12); Aspartate Amino Transferase 29 U/L (14-36); Bilirubin,Total 1.3 mg/dL (0.2-1.3); Blood Urea Nitrogen 12 mg/dL (7-17); Calcium 9.6 mg/dL (8.4-10.2); Carbon Dioxide 23 mmol/L (22-30); Chloride 108 mmol/L (98-107); Estimated Glomerular Filt Rate > 60; Glucose 73 mg/dL (65-110); Potassium 4.5 mmol/L (3.4-5.0); Sodium 140 mmol/L (137-145)
== END 2024-01-04 08:00 | disposition home or self-care (01) ==
PROVIDERS: PCP Internal Medicine; Visit Provider Clinical Nurse Specialist
DX: R74.01 Elevation of levels of liver transaminase levels (principal)
CPT/HCPCS: 36415; 80053

== ENCOUNTER 2024-01-10 09:31 | Outpatient (CLI) | payer MEDICARE, OTHER, SELFPAY ==
--- NOTE | 2024-01-26 10:22 | WPDHOMESLEEP ---
Sleep Study - Home Unattended Date of Study: 01/10/24 Ordering Provider: MAIA Rodriguez-C Interpreting Provider: Praveena Mason, DO Home Sleep Study Type: Watch PAT Height: 1.74 m Weight: 87.997 kg Body Mass Index: 29.0 Neck Circumference (inches): 14.5 [place]: 0 Reason for Sleep Study Snoring Sleep History The patient is a 73-year-old female that had a sleep study ordered by her primary care for evaluation of sleep apnea. The patient denies awakening from sleep short of breath. She occasionally awakens at night with heartburn, belching or cough. She is unsure if she snores. She rarely has trouble sleeping when she has a cold. She denies waking up gasping for air throughout the night. She denies having breathing problems at night observed by herself or others. She occasionally sweats excessively at night. She denies having heart palpitations or irregular heartbeats during the night. She denies falling asleep during the day and while driving. She denies sleep paralysis, cataplexy and hypnagogic / hypnopompic hallucinations. She denies having trouble at school or work due to sleepiness. She denies feeling afraid of going to sleep. She denies having nightmares. She denies remembering her dreams. She occasionally has thoughts racing through her mind. She denies feeling sad, depressed or anxious. She denies having muscular tension. She denies noticing parts of her body jerk. She denies kicking during night. She denies having crawling and aching feelings in her legs and denies leg pain. She occasionally grinds her teeth during sleep but never awakens with morning jaw pain. She is occasionally bothered by pain during the day occasionally awakened by pain during the night. She rarely wakes up feeling stiff in the morning. She rarely wakes up with sore or achy muscles. He rarely wakes up with pain neck spine joints. She goes to bed at 8:30 p.m. on weekdays and at 9:00 p.m. on the weekends. It takes her 10-30 minutes to fall asleep. She wakes up twice throughout the night to urinate and is usually able to fall back asleep immediately. She wakes up at 6:00 a.m. on weekdays and at 7:30 a.m. on the weekends. She typically gets 6-8 hours of sleep per night. She stays bed for 15 minutes after waking up in the morning. She currently lives with her significant other. She denies consuming any caffeinated beverages within 2 hours of bedtime. She denies engaging in physical exercise before bedtime. She will read watch television before falling asleep. She denies taking naps in the afternoon or the evening. She consumes 2 cups of caffeinated beverage per day. He consumes 1-2 glasses of alcohol per week. She denies tobacco and recreational drug use. [facility] Past Medical History Medical History Cerumen impaction Encounter for screening mammogram for breast cancer Eustachian tube dysfunction Gastroenteritis Lumbar radiculopathy Need for hepatitis C screening test Obesity (BMI 30.0-34.9) Primary osteoarthritis of right hip Primary osteoarthritis of right knee Screening for osteoporosis Surgical History Surgical History History of cataract surgery (~01/2021) Hx of cataract surgery (~02/2021) Family History Family History Mother Diabetes mellitus Family history of osteoporosis Hypertension Family history of cardiovascular disease Family history of coronary artery disease Father Family history of alcoholism, Onset Age: 57 Family history of liver disease, Onset Age: 57 Family history of hepatitis, Onset Age: 57 Family history of kidney disease, Onset Age: 57 Sibling Acute myocardial infarction, Onset Age: 60 Social History Social History Soci
[2024-01-26 10:26] VITALS: BMI 29.0
== END 2024-01-16 09:39 | disposition home or self-care (01) ==
LOC: ANHCSM 09:32
PROVIDERS: PCP Internal Medicine; Visit Provider Clinical Nurse Specialist
DX: G47.10 Hypersomnia, unspecified (principal); G47.33 Obstructive sleep apnea (adult) (pediatric)
CPT/HCPCS: 95800

== ENCOUNTER 2024-05-28 11:14 | Emergency (ER) | payer MEDICARE, OTHER, SELFPAY ==
--- NOTE | ~2024-05-28 | XR_ITS ---
EXAMINATION: XR hip RT min 2V DATE: 05/28/2024 12:26 INDICATION: Right hip pain. Fall. TECHNIQUE: 2 views of right hip were obtained. COMPARISON: None. FINDINGS: Alignment is normal. No fracture. There is severe right hip osteoarthritis. Osteitis pubis is noted. IMPRESSION: 1. Severe right hip osteoarthritis. Reviewed, dictated and finalized at location A. MAKER
--- NOTE | ~2024-05-28 | XR_ITS ---
EXAMINATION: XR knee RT min 4V DATE: 05/28/2024 12:26 INDICATION: Right knee pain. Fall. TECHNIQUE: 4 views of right knee were obtained. COMPARISON: None. FINDINGS: Bone alignment is normal. No fracture. There is moderate osteoarthritis of lateral compartm ent and mild osteoarthritis of medial and patellofemoral compartments. There is an enthesophyte at th e proximal attachment of medial collateral ligament. No knee joint effusion. IMPRESSION: 1. Moderate right knee osteoarthritis. Reviewed, dictated and finalized at location A. [employer]
[2024-05-28 11:32] VITALS: BP 130/100; PULSE 94; RESP 15; TEMP 36.6; O2SAT 99
--- NOTE | 2024-05-28 12:02 | ED.LOWEXIN ---
HPI - Extremity Injury (Lower) General Chief Complaint: Extremity Injury, Lower Stated Complaint: LOW BACK/R KNEE INJURY Time Seen by Provider: 05/28/24 12:02 Source: patient Mode of arrival: ambulatory Limitations: no limitations History of Present Illness HPI Narrative: 73 yo F presents with c/o pain to R knee and R hip. Also reports pain to low back radiating to R buttock and R leg. think i aggravated my sciatica . pt was getting out xmas decorations and missed a step when climbing down and fell off the ladder. Was almost to bottom of ladder when she fell. did not hit head. No LOC. R knee twisted and fell onto R hip. ambulatory with steady gait. 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 all systems reviewed and negative except as noted above. Related Data Home Medications Medication Instructions Recorded Confirmed cholecalciferol (vitamin D3) 25 25 mcg PO DAILY 05/12/21 05/28/24 mcg (1,000 unit) capsule multivitamin (Daily Multi-Vitamin 2 tablet PO DAILY 02/01/22 05/28/24 tablet) Allergies Allergy/AdvReac Type Severity Reaction Status Date / Time No Known Allergies Allergy Verified 05/28/24 11:20 Review of Systems Review of Systems: CONSTITUTIONAL: Denies fever, chills, or sweats. EYES: Denies visual changes, redness, or discharge. ENT: Denies rhinorrhea, congestion, sore throat, or otalgia. CARDIOVASCULAR: Denies chest pain, palpitations, or edema. RESPIRATORY: Denies cough or dyspnea. GASTROINTESTINAL: Denies abdominal pain, nausea, vomiting, or diarrhea. GENITOURINARY: Denies dysuria or hematuria. SKIN: Denies rash or itching. MUSCULOSKELETAL: Reports low back pain, right hip pain and right knee pain. NEUROLOGIC: Denies headache, numbness, or weakness. PSYCHIATRIC: Denies anxiety or depression. All other systems reviewed are negative, except as documented in HPI. [facility] Past Medical History Medical History (Updated 05/29/24 @ 00:00 by Background Daemon) Cerumen impaction Elevated blood pressure reading Encounter for screening mammogram for breast cancer Eustachian tube dysfunction Gastroenteritis Lumbar radiculopathy Need for hepatitis C screening test Obesity (BMI 30.0-34.9) Primary osteoarthritis of right hip Primary osteoarthritis of right knee Screening for osteoporosis Surgical History Surgical History History of cataract surgery (~01/2021) Hx of cataract surgery (~02/2021) Family History Family History Mother Diabetes mellitus Family history of osteoporosis Hypertension Family history of cardiovascular disease Family history of coronary artery disease Father Family history of alcoholism, Onset Age: 57 Family history of liver disease, Onset Age: 57 Family history of hepatitis, Onset Age: 57 Family history of kidney disease, Onset Age: 57 Sibling Acute myocardial infarction, Onset Age: 60 Social History Social History Social History: Caffeine-coffee daily Smoking status: Never smoker Alcohol intake: current Drinks per week: 3 Alcohol use details: wine Substance use type: does not use Do You Feel Safe in your Home?: Yes Lack of Transportation: No Lack of Food: Never True Current Housing: I Have Housing Concerned About Future Housing: No Difficulty Paying Gas/Electric Bills: No Difficulty Paying for Meds: No Currently Unemployed: No Education: High School Diploma/GED Difficulty w/ Childcare or Family Care: No Living arrangements: with family Comments At time of signature, agree with nursing past medical, surgical, social and family history. There is no relevant family history pertinent to the presenting complaint. Exam Narrative: GENERAL: This is a well-nourished, well-developed patient, in no apparent distress. HEAD: normocephalic, atraumatic. EYES: PERRL. Sclera clear/white. Vision is grossly intact. EARS: External ears normal NOSE: External nose normal NECK: Neck supple, non-tender without lymphadenopathy, masses or thyromegaly. CARDIOVASCULAR: Regular rate and rhythm without murmurs, gallops, or rubs. RESPIRATORY: Clear to auscultation. Breath sounds equal bilaterally. No wheezes, rales, or rhonchi. SKIN: warm, Dry, intact with no suspicious lesions or rash, good texture and turgor. NEURO: awake, alert, and oriented to person, place and time. There were no obvious focal neurologic abnormalities. EXTREMITIES: Tenderness to anterior and medial aspect of right knee. Mild swelling noted. Negative anterior and posterior drawer testing. No effusion noted. Range of motion intact. R hip tenderness, lateral and anterior aspect, great trochanter. normal ROM BACK: Generalized muscular tenderness to low back. No midline tenderness. Tenderness to right SI joint. Lower extremity strength 5/5 bilaterally. Course Course Level of Care: Express Care Visit Vital Signs Vital signs: Vital Signs Temperature 36.6 C 05/28/24 11:32 Pulse Rate 94 05/28/24 11:32 Respiratory Rate 15 05/28/24 11:32 Blood Pressure 130/100 H 05/28/24 11:32 Pulse Oximetry 99 05/28/24 11:32 Oxygen Delivery Room Air 05/28/24 11:32 Temperature 36.6 C 05/28/24 11:32 Pulse Rate 94 05/28/24 11:32 Respiratory Rate 15 05/28/24 11:32 Blood Pressure 130/100 H 05/28/24 11:32 Pulse Oximetry 99 05/28/24 11:32 Oxygen Delivery Room Air 05/28/24 11:32 MDM - Extremity Injury (Lower) MDM Narrative Medical decision making narrative: x-ray of right hip and right knee normal. No fracture noted. Will treat patient with steroids, muscle relaxant for sciatica pain patient given sciatica stretches. Patient ambulatory with steady gait. No neuro deficits. Patient is aware of diagnosis, understands and agrees to treatment plan. Anticipatory guidance given. Patient agrees to follow-up as directed and is aware of reasons to seek care at the emergency department. Portions of this record may have been created with voice recognition software Differential Diagnosis Differential diagnosis: Likely other ( Right knee sprain, sciatica, right hip contusion, right knee contusion, right knee fracture) Imaging Data My impression: Agree with radiologist Radiologist's impression: EXAMINATION: XR knee RT min 4V DATE: 05/28/2024 12:26 INDICATION: Right knee pain. Fall. TECHNIQUE: 4 views of right knee were obtained. COMPARISON: None. FINDINGS: Bone alignment is normal. No fracture. There is moderate osteoarthritis of lateral compartment and mild osteoarthritis of medial and patellofemoral compartments. There is an enthesophyte at the proximal attachment of medial collateral ligament. No knee joint effusion. IMPRESSION: 1. Moderate right knee osteoarthritis. Discharge Plan Discharge Clinical Impression: Acute low back pain with right-sided sciatica, Contusion of knee, right Patient Disposition: Home, Self-Care Condition: Stable Instructions: Sciatica (ED), Lower Back Exercises (ED) Additional Instructions: The x-ray of your right hip and right knee was negative for fracture. Take Tylenol every 6-8 hours as needed for pain. Take methocarbamol as prescribed. This medication as a muscle relaxant may make you drowsy. Do not drive while taking it. Alternate between ice and heat. Do stretching exercises as tolerated. Follow-up with your primary care physician if symptoms are not improving. Prescriptions: New methocarbamol 500 mg tablet 500 mg PO Q6H PRN (Reason: muscle pain/spasm) Qty: 30 0RF No Action atorvastatin 20 mg tablet 20 mg PO DAILY Qty: 90 2RF losartan 25 mg tablet 25 mg PO DAILY Qty: 90 2RF cholecalciferol (vitamin D3) 25 mcg (1,000 unit) capsule 25 mcg PO DAILY multivitamin [Daily Multi-Vitamin] Tablet 2 tablet PO DAILY fluticasone propionate [Flonase Allergy Relief] 50 mcg/actuation spray,suspension 2 spray intranasal DAILY Qty: 16 0RF Rx Instructions: administer into each nostril Follow-up/Referrals: Mason Herrera DO [Primary Care Provider] - Stand Alone Forms: Work/School Release IP Time of Disposition: 12:50
== END 2024-05-28 12:55 | disposition home or self-care (01) ==
PROVIDERS: Emergency Provider Nurse Practitioner Family; PCP Internal Medicine
DX: M54.41 Lumbago with sciatica, right side (principal); S80.01XA Contusion of right knee, initial encounter; W11.XXXA Fall on and from ladder, initial encounter; E66.9 Obesity, unspecified; Z68.28 Body mass index [BMI] 28.0-28.9, adult; M17.11 Unilateral primary osteoarthritis, right knee; M16.11 Unilateral primary osteoarthritis, right hip
CPT/HCPCS: 73502; 73564; 99214; G0463

== ENCOUNTER 2024-08-16 14:22 | Outpatient (NON) | payer MEDICARE, OTHER, SELFPAY ==
--- OUTSIDE RECORDS SUMMARY | 2024-08-16 14:25 | XMS_ITS | Continuity of Care Document ---
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 Name Role Phone Hossein Santacruz MD Unavailable Unavailable Allergies, Adverse Reactions, Alerts Substance Reaction Status Criticality No Known Allergies Active No Inform ation Medications Medication Instructions Dosage Effective Dates (start - stop) Status Comments Lipitor 20 mg tablet take 1 tablet by oral route every day 20 MG - Active Vitamin D3 100 mcg (4,000 unit) capsule take 1 by oral route every day - Active Claritin-D 12 Hour 5 mg-120 mg tablet,extended release take 1 tablet by oral route every 12 hours 1.00 tablet - Active Aleve 220 mg capsule take 2 capsule by oral route 2 times every day 2 capsule - Active Vigamox 0.5 % eye drops instill 1 drop by ophthalmic route 4 times every day into operative eye for 2 weeks, then stop - No Longer Active ok to substitute Polytrim 5ml with same directions prednisolone acetate 1 % eye drops,suspension instill 1 drop by ophthalmic route 4 times every day into operative eye for 2 weeks, then 2 times per day for 2 weeks, then stop - No Longer Active ketorolac 0.5 % eye drops instill 1 drop in operative eye 4 times every day for 2 weeks, then 2 times per day for 2 weeks, then stop - No Longer Active ketorolac 0.5 % eye drops instill 1 drop in operative eye 4 times every day for 2 weeks, then 2 times per day for 2 weeks, then stop - No Longer Active prednisolone acetate 1 % eye drops,suspension instill 1 drop by ophthalmic route 4 times every day into operative eye for 2 weeks, then 2 times per day for 2 weeks, then stop - No Longer Active Vigamox 0.5 % eye drops instill 1 drop by ophthalmic route 4 times every day into operative eye for 2 weeks, then stop - No Longer Active ok to substitute Polytrim 5ml with same directions ketorolac 0.5 % eye drops instill 1 drop in operative eye 4 times every day for 2 weeks, then 2 times per day for 2 weeks, then stop - No Longer Active prednisolone acetate 1 % eye drops,suspension instill 1 drop by ophthalmic route 4 times every day into operative eye for 2 weeks, then 2 times per day for 2 weeks, then stop No Longer Active Vigamox 0.5 % eye drops instill 1 drop by ophthalmic route 4 times every day into operative eye for 2 weeks, then stop No Longer Active ok to substitute Polytrim 5ml with same directions Procedures Procedure Date No Charge Refraction Post-op Follow-up Visit Post-op Follow-up Visit Remove Cataract, Post Op Care Laser Cataract SX With Toric Lens Remove Cataract, Insert Lens,Comanaged A IOLMaster-Professional No Charge Refraction Post-op Follow-up Visit Remove Cataract, Post Op Care Remove Cataract, Insert Lens,Comanaged J Laser Cataract SX Standard IOLMaster-Professional No Charge GDX Retina Special Eye Evaluation No Charge Orbscan IOLMaster-Technical Fundus Photography W/ Report Office/outpatient Visit, New Advance Directives Directive Yes / No Effective Date File Name No Information Encounters Encounter Description Practice Location Reason(s) For Visit Diagnoses Date Provider Providers Copied on Encounter [facility], [address] [place] [address] [address], [place], [place], [id number], tel:[phone] SEC [place] Professional 1 month s/p TORIC IOL w/LensAR (chief complaint) Post op visit 1 Noam Catalan. [address], [address], [place], [place], [address], [place]. tel:[phone] Referring Provider: Brooke Durham OD, [address] [place] [address], [address]. tel:[phone] [facility], [address] [place] [address] [address], [place], [place], [id number], tel:[phone] [place] Professional 1 week s/p TORIC IOL w/LensAR (chief complaint) Post op visit 1 Noam Catalan. [address], [address], [place], [place], [address], [place]. tel:[phone] Referring Provider: Brooke Durham OD, [address] [place] [address], [address]. tel:[phone] [facility], [address] [place] [address] [address], [place], [place], [address], tel:[phone] SEC [place] Professional 1 day po Toric PCIOL OS (02/11/21) (chief complaint) Post op visit 1 Noam Catalan. [address], [place], [place], [id number], . tel:[phone] Referring Provider: Brooke Durham OD, [address] [place] [address], [address]. tel:[phone] [facility], [address], [place], [place], [address], [place] [phone] [facility] No Information 1 Noam Catalan. [address], [facility] [[email or web address] [place], [place], [address], . tel:[phone] Referring Provider: Brooke Durham OD, [address] [place] [address], [address]. tel:[phone] [facility], [address], [place], [place], [address], [place] tel:[phone] SEC Foreign [employer] Professional No Information 1 Noam Catalan. [address], [facility] [[email or web address]] [place], [address], . tel:[phone] Referring Provider: Brooke Durham OD, [address] [place] [address], [address]. tel:[phone] [facility], [id number] [place] [address] [address], [place], [place], [address], [place] tel:[phone] SEC Foreign [employer] Professional No Information 1 Noam Catalan. [address], [facility] [[email or web address] [place], [address], . tel:[phone] [facility], [address], [place], [place], [address], [place] tel:[phone] SEC Foreign [employer] Professional 2 wk po PCIOL OD (01/14/21) (chief complaint) Post op visit 1 Noam Catalan. [address], [facility] [[email or web address] [place], [id number], . tel:[phone] Referring Provider: Brooke Durham OD, [address] [place] [address], [address]. tel:[phone] [facility], [address], [place], [place], [address], [place] tel:[phone] SEC Foreign [place] Professional Post-Op (chief complaint) Post op visit 1 Noam Catalan. [address], [address] [place], [address], [place]. tel:[phone] Referring Provider: Brooke Durham OD, [address] [place] [address], [address]. tel:[phone] [facility], [address], [place], [place], [address], [place] tel:[phone] [facility] No Information 1 Noam Catalan. [address], [place], [address], [place]. tel:[phone] Referring Provider: Brooke Wentworth OD, [address] [place] [address], [address]. tel:[phone] [facility], [address], [place], [place], [address], [place] tel:[phone] SEC Foreign [employer] Professional No Information 1 Noam Catalan. [address] [facility], [address] [place], [address], [place]. tel:[phone] Referring Provider: Brooke Wentworth OD, [address] [place] [address], [address]. tel:[phone] [facility], [address], [place], [place], [address], [place] tel:[phone] SEC Tristan Garcia No Information 1 Noam Catalan. [address], [place], [address], [place]. tel:[phone] [facility], [address], [place], [place], [address], [place] [phone] SEC Ara Jade SALLY No Information 1 Noam Catalan. [address] [address], [place], [place], [address], [place]. tel:[phone] Office/outpa tient Visit, [facility], [address], [place], [place], [address], [place] tel:[phone] SEC [place] Professional Cataract evaluation (chief complaint) Anatomical narrow angle of both eyesAge-relat ed nuclear cataract, bilateralEpir etinal membrane (ERM) of right eye 1 Noam Catalan. [address], [place], [place], [address], [place]. tel:[phone] Referring Provider: Brooke Durham OD, [address] [place] [address] [place], [address]. tel:[phone] [facility], [address], [place], [place], [address], [place] [phone] SEC [place] Professional No Information 1 Noam Catalan. [address], [place], [place], [address], [place]. tel:[phone] Referring Provider: Brooke Durham OD, [address] [place] [address] [place], [address]. tel:[phone] Family History Family Member Type Diagnosis Age At Onset Problem Family history of Diabetes m damian Payers Payer name Insurance type Covered republican ID Authoriza tion(s) No Information Social History Type Description Quantity Date Captured Comments Alcohol Use Details No Caffeine Use Details No Tobacco Use Status Current non-smoker Smoking Status Never smoker Non-Smoking Tobacco Use Details : No Details Available : No Details Available Sex Female Chief Complaint And Reason For Visit From encounter dated '03/13/2021 14:45'. 1 month s/p TORIC IOL w/LensAR (chief complaint). Description: The 70 year old female presents for evaluation of 1 month s/p TORIC IOL w/LensAR in the left eye (02/11/21). Patient states [facility]. Patient will need to see referring OD if glasses needed. Reason For Referral Reason For Referral No Information Plan Of Treatment Date Type Action Status Patient Education Cataract Surgery: What to Expect at H~ completed History Of Present Illness Encounter Date Complaint History Of Prese nt Illness 1 month s/p TORIC IOL w/LensAR T he 70 year old female presents for evaluation of 1 month s/p TORIC IOL w/LensAR in the left eye (02/11/21). Patient states [facility]. Patient will need to see referring OD if glasses needed. 1 week s/p TORIC IOL w/LensAR Th e 70 year old female presents for evaluation of 1 week s/p TORIC IOL w/LensAR in the left eye (02/11/21). Patient states [facility] is [facility], patient using p/o gtts as directed. 1 day po Toric PCIOL OS (02/11/21 ) The 70 year old female presents for evaluation of 1 day po Toric PCIOL OS (02/11/21) Pt reports good comfort and vision OS. Pt was assigned Prednisolone, Ketorolac, and Vigamox QID OS. Post op instructions reviewed and understood by the pt. 2 wk po PCIOL OD (01/14/21) The 8 8 year old female presents for evaluation of 2 wk po PCIOL OD (01/14/21). Pt reports good comfort and vision OD. Pt reports taking Pred, Ketorolac, and Vigamox QID OD. Pt reports trouble driving at night. She sees glare from oncoming headlights at night. Pt reports trouble seeing street signs and small print at near such as newspapers, books, and medicine bottles x many months OS. Post-Op The 70 year old female presents for a 1 day post op CE with LENSAR and LRI OD. Patient is using Pred, Vigamox and Ketorolac qid OD. Patient denies any pain or discomfort. Cataract evaluation The 70 year old female presents for evaluation of Cataract evaluation in the right eye and left eye. Hx of CAT OU and MV CLS (soft dailies, not sure which eye is NV). Pt reports she hasn't worn her CLS for about 6 wks. Pt denies any past ocular injuries or Sx, OU. Pt reports she uses OTC AFT or allergy gtts PRN OU. Pt reports she has trouble focusing on objects up close, has trouble driving during the night time and day time and trouble recognizing people's faces from across the street, OU, x 1 yr, even with gls or CLS. Functional Status Date Functional Assessmen t No Information Instructions Date Instruction Additional Infor evangelina Impression/Plan Impression/Plan Impression/Plan Impression/Plan Impression/Plan Impression/Plan Assessments Type Assessment Date assessment Post op visit Patient Care Teams Name Effective Dates (start - stop) Status Members No Information
--- OUTSIDE RECORDS SUMMARY | 2024-08-16 14:25 | XMS_ITS | Data Portability ---
Author Organization [facility] [place] Address [address] [place] [address] Care Team Providers Care Clinical Care Leader Name Role Phone MITZIJA COLLAZO Primary Care Provider [phone] Assessment No assessment recorded. Plan of Treatment Reminders Order Date Submit Date Provider Last Modified By Organization Details Last Modified Time Details Appointments None recorded. Lab None recorded. Referral None recorded. Procedures None recorded. Surgeries None recorded. Imaging None recorded. Medication Orders Victoza 3-Jeff 0.6 mg/0.1 mL (18 mg/3 mL) subcutaneou s pen injector 2022 023 [id number], [address], [place], [id number], 3 10:12:23 Mounjaro 2.5 mg/0.5 mL subcutaneou s pen injector 2022 023 [facility], [address] [place] [address], [address], 3 10:12:17 Patient TargetsNo targets recorded. Patient InstructionsNo instructions recorded. Reason for Referral None Reported. Results Created Date Observation Date Name Description Value Unit Range Abnormal Flag Note LastModifiedBy Organization Detail LastModifiedTime 09/30/1909/29/2022 CBC W/DIF F WBC 4.9 10'3/ uL 3.6-10 .2 Not Available [facility] (Lab) [address], [place], [address], 09/30/2022 05:15:26 09/30/19 23 09/29/2022 CBC W/DIF F RBC 4.73 10'6/ uL (based on docume nted legal sex) 4.10-5 .30 Not Available [facility] (Lab) [address], [place], [address], 09/30/2022 05:15:26 09/30/19 23 09/29/2022 CBC W/DIF F HGB 13.7 g/dL (based on docume nted legal sex) 11.9-1 5.8 Not Available [facility] (Lab) [address], [place], [address], 09/30/2022 05:15:26 09/30/19 23 09/29/2022 CBC W/DIF F HCT 43.6 % (based on docume nted legal sex) 37.4-4 8.3 Not Available [facility] (Lab) [address], [place], [address], 09/30/2022 05:15:26 09/30/19 23 09/29/2022 CBC W/DIF F MCV 92.2 fL 82.0-9 9.0 Not Available [facility] (Lab) [address], [place], [address], 09/30/2022 05:15:26 09/30/19 23 09/29/2022 CBC W/DIF F MCH 29.0 pg 27.0-3 3.0 Not Available [facility] (Lab) [address], [place], [address], 09/30/2022 05:15:26 09/30/19 23 09/29/2022 CBC W/DIF F MCHC 31.4 g/dL 32.0-3 6.0 low Not Available [facility] (Lab) [address], [place], [address], 09/30/2022 05:15:26 09/30/19 23 09/29/2022 CBC W/DIF F RDW 13.2 % 11.0-1 5.0 Not Available [facility] (Lab) [address], [place], [address], 09/30/2022 05:15:26 09/30/19 23 09/29/2022 CBC W/DIF F plt 290 10'3/ uL 150-45 0 Not Available [facility] (Lab) [address], [place], [address], 09/30/2022 05:15:26 09/30/19 23 09/29/2022 CBC W/DIF F MPV 10.5 fL 9.8-12 .7 Not Available [facility] (Lab) [address], [place], [address], 09/30/2022 05:15:26 09/30/19 23 09/29/2022 CBC W/DIF F NRBC's 0.0 % 0 Not Available [facility] (Lab) [address], [place], [address], 09/30/2022 05:15:26 09/30/19 23 09/29/2022 CBC W/DIF F absolute NRBCs 0.0 10'3/ uL 0 Not Available [facility] (Lab) [address], [place], [address], 09/30/2022 05:15:26 09/30/19 23 09/29/2022 CBC W/DIF F neutrophils 52.0 % 37.0-7 2.0 Not Available [facility] (Lab) [address], [place], [address], 09/30/2022 05:15:26 09/30/19 23 09/29/2022 CBC W/DIF F lymphocytes 32.5 % 16.0-4 8.0 Not Available [facility] (Lab) [address], [place], [address], 09/30/2022 05:15:26 09/30/19 23 09/29/2022 CBC W/DIF F monocytes 10.0 % 4.0-14 .0 Not Available [facility] (Lab) [address] [place], [address], 09/30/2022 05:15:26 09/30/19 23 09/29/2022 CBC W/DIF F eosinophils 3.7 % 0.0-9. 0 Not Available [facility] (Lab) [address], [place], [address], 09/30/2022 05:15:26 09/30/19 23 09/29/2022 CBC W/DIF F basophils 1.2 % 0.0-2. 0 Not Available [facility] (Lab) [address], [place], [address], 09/30/2022 05:15:26 09/30/19 23 09/29/2022 CBC W/DIF F immature granulocytes 0.6 % no define d refere nce range Not Available [facility] (Lab) [address], [place], [address], 09/30/2022 05:15:26 09/30/19 23 09/29/2022 CBC W/DIF F absolute neutrophils 2.5 10'3/ uL 1.1-6. 0 Not Available [facility] (Lab) [address] [place], [address], 09/30/2022 05:15:26 09/30/19 23 09/29/2022 CBC W/DIF F absolute lymphocytes 1.6 10'3/ uL 0.7-3. 4 Not Available [facility] (Lab) [address] [place], [address], 09/30/2022 05:15:26 09/30/19 23 09/29/2022 CBC W/DIF F absolute monocytes 0.5 10'3/ uL 0.3-1. 0 Not Available [facility] (Lab) [address], [place], [address], 09/30/2022 05:15:26 09/30/19 23 09/29/2022 CBC W/DIF F absolute eosinophils 0.2 10'3/ uL 0.0-0. 6 Not Available [facility] (Lab) [address] [facility], [place], [address], 09/30/2022 05:15:26 09/30/19 23 09/29/2022 CBC W/DIF F absolute basophils 0.1 10'3/ uL 0.0-0. 1 Not Available [facility] (Lab) [address] [facility], [place], [address], 09/30/2022 05:15:26 09/30/19 23 09/29/2022 CBC W/DIF F absolute immature granulocytes 0.0 10'3/ uL 0.00-0 .10 2022 3:10 AM: P indic ates parti al resul ts on a panel have been relea sed. Addit ional resul ts will follo w. 2022 3:10 AM: This resul t has been final verif ied. No addit ional or olivo ed resul ts are expec perez. Not Available [facility] (Lab) [address], [place], [address], 09/30/2022 05:15:26 09/30/19 23 09/29/2022 HEMOG LOBIN A1C hemoglobin A1C 5.8 % 0-5.6 high The Ameri can [employer]abe hector [employer] i[employer] n recom mends that a prima ry goal of thera py rocioul d be a HBA1C of < 7% and that physi cians shoul d reeva luate the treat ment regim en in patie nts with HBA1C value s consi stent ly > 8%. <5.7% Liliane l 5.7 - 6.4% Incre ased risk for diabe hector >=6.5 % Diagn ostic of diabe hector <7.0% Goal of thera py >8.0% Actio n sugge sted Not Available [facility] (Lab) [address] [facility], [place], [address], 09/30/2022 05:15:27 09/30/19 23 09/29/2022 LIPID PANEL ,AMA (LDL- CALC) total cholesterol 196 mg/dL 0-199 Not Available [facility] (Lab) [address] [facility], [place], [address], 09/30/2022 05:15:27 09/30/19 23 09/29/2022 LIPID PANEL ,AMA (LDL- CALC) triglyceride s 103 mg/dL 0.00-1 50.00 NCEP Refer ence Value s for Trigl yceri tanner: Liliane l: <150 mg/dL Borde rline High: 150 - 199 mg/dL High: 200 - 499 mg/dL Very High: >/= 500 mg/dL Not Available [facility] (Lab) [address] [place], [address], 09/30/2022 05:15:27 09/30/19 23 09/29/2022 LIPID PANEL ,AMA (LDL- CALC) HDL cholesterol 80 mg/dL >40 Not Available [facility] (Lab) [address] [place], [address], 09/30/2022 05:15:27 09/30/19 23 09/29/2022 LIPID PANEL ,AMA (LDL- CALC) LDL cholesterol 95 mg/dL 0-99 Cutof f value s recom connie d by the Natanjelica nal Yuliana stero l Educa tion Progr am: STEFFI ABLE: Yuliana stero l <200 mg/dL LDL <100 mg/dL BORDE RLINE : Yuliana stero l 200-2 39 mg/dL LDL 101-1 59 mg/dL HIGHE R RISK: Yuliana stero l >240 mg/dL LDL >160 mg/dL , HDL <40 mg/dL Not Available [facility] (Lab) [address] [place], [address], 09/30/2022 05:15:27 09/30/19 23 09/29/2022 LIPID PANEL ,AMA (LDL- CALC) non-HDL cholesterol 116 mg/dL no refere nce range A reaso nable goal for non-H DL yuliana stero l is one that is 30 mg/dL highe r than the LDL yuliana stero l goal. Not Available [facility] (Lab) [address] [facility], [place], [address], 09/30/2022 05:15:27 09/30/19 23 09/29/2022 LIPID PANEL ,AMA (LDL- CALC) chol/HDL ratio 2.5 . 0.0-5. 0 Not Available [facility] (Lab) [address] [facility], [place], [address], 09/30/2022 05:15:27 09/30/19 23 09/29/2022 CMP(C OMPRE HENSI VE METAB OLIC PANEL ) sodium 141 mmol/ L 133-14 6 Not Available [facility] (Lab) [address] [facility], [place], [address], 09/30/2022 05:15:28 09/30/19 23 09/29/2022 CMP(C OMPRE HENSI VE METAB OLIC PANEL ) potassium 4.6 mmol/ L 3.5-5. 1 Not Available [facility] (Lab) [address] [facility], [place], [address], 09/30/2022 05:15:28 09/30/19 23 09/29/2022 CMP(C OMPRE HENSI VE METAB OLIC PANEL ) chloride 106 mmol/ L 98-107 Not Available [facility] (Lab) [address] [facility], [place], [address], 09/30/2022 05:15:28 09/30/19 23 09/29/2022 CMP(C OMPRE HENSI VE METAB OLIC PANEL ) carbon dioxide 27 mmol/ L 21-31 Not Available [facility] (Lab) [address] [place], [address], 09/30/2022 05:15:28 09/30/19 23 09/29/2022 CMP(C OMPRE HENSI VE METAB OLIC PANEL ) anion gap 8 mmol/ L 4-13 Not Available [facility] (Lab) [address] [facility], [place], [address], 09/30/2022 05:15:28 09/30/19 23 09/29/2022 CMP(C OMPRE HENSI VE METAB OLIC PANEL ) blood urea nitrogen 16 mg/dL 7-25 Not Available [facility] (Lab) [address] [facility], [place], [address], 09/30/2022 05:15:28 09/30/19 23 09/29/2022 CMP(C OMPRE HENSI VE METAB OLIC PANEL ) creatinine 0.61 mg/dL 0.60-1 .30 Not Available [facility] (Lab) [address] [facility], [place], [address], 09/30/2022 05:15:28 09/30/19 23 09/29/2022 CMP(C OMPRE HENSI VE METAB OLIC PANEL ) egfrcr (CKD-epi 2020) >90 mL/mi n/1.7 3_m2 >=60 Not Available [facility] (Lab) [address] [facility], [place], [address], 09/30/2022 05:15:28 09/30/19 23 09/29/2022 CMP(C OMPRE HENSI VE METAB OLIC PANEL ) calcium 9.5 mg/dL 8.3-10 .5 Not Available [facility] (Lab) [address] [place], [address], 09/30/2022 05:15:28 09/30/19 23 09/29/2022 CMP(C OMPRE HENSI VE METAB OLIC PANEL ) glucose 105 mg/dL 70-100 high Not Available [facility] (Lab) [address] [place], [address], 09/30/2022 05:15:28 09/30/19 23 09/29/2022 CMP(C OMPRE HENSI VE METAB OLIC PANEL ) protein, total 6.6 g/dL 6.4-8. 3 Not Available [facility] (Lab) [address] [facility], [place], [address], 09/30/2022 05:15:28 09/30/19 23 09/29/2022 CMP(C OMPRE HENSI VE METAB OLIC PANEL ) albumin 4.2 g/dL 3.5-5. 0 Not Available [facility] (Lab) [address] [facility], [place], [address], 09/30/2022 05:15:28 09/30/19 23 09/29/2022 CMP(C OMPRE HENSI VE METAB OLIC PANEL ) ALT 31 units /L 9-43 Not Available [facility] (Lab) [address] [facility], [place], [address], 09/30/2022 05:15:28 09/30/19 23 09/29/2022 CMP(C OMPRE HENSI VE METAB OLIC PANEL ) alkaline phosphatase 63 units /L 34-104 Not Available [facility] (Lab) [address] [facility], [place], [address], 09/30/2022 05:15:28 09/30/19 23 09/29/2022 CMP(C OMPRE HENSI VE METAB OLIC PANEL ) AST 21 units /L 13-39 Not Available [facility] (Lab) [address] [facility], [place], [address], 09/30/2022 05:15:28 09/30/19 23 09/29/2022 CMP(C OMPRE HENSI VE METAB OLIC PANEL ) bilirubin, total 1.0 mg/dL 0.2-1. 2 Not Available [facility] (Lab) [address] [facility], [place], [address], 09/30/2022 05:15:28 09/30/19 23 09/29/2022 TSH, REFLE X FREE T4 TSH 1.53 uIU/m L 0.30-5 .33 Not Available [facility] (Lab) [address] [facility], [place], [address], 09/30/2022 05:15:28 09/30/19 23 09/29/2022 VITAM IN D, 25-OH (TOTA L D2/D3 ) vitamin D, 25-hydroxy, total 54.3 NG/mL 30.0-1 00.0 Sugge stive of Defic iency : <20 ng/mL Sugge stive of Insuf ficie ncy: 20-29 ng/mL Sugge stive of Suffi cienc y: 30-10 0 ng/mL Sugge stive of Toxic ity: >150 ng/mL Not Available [facility] (Lab) [address] [facility], [place], [address], 09/30/2022 05:15:29 Result Notes None recorded. Procedures Surgical History Date Name Laterality Status Provider Name and Address Organization Details Recorded Time Tubal Ligation completed [facility] 09/28/2022 11:36:03 liposuction of subcutaneous tissue completed [facility] 09/28/2022 11:36:45 Imaging Results None recorded. Procedure Notes None recorded. Medical Equipment None Reported. Allergies No known drug allergies Medications Name Sig Start Date Stop Date Status Note LastModified by Organization Details LastModified Time atorvastati n 20 mg tablet active Not Available Not Available Not Available valacyclovi r 1 gram tablet active Not Available Not Available Not Available methylpredn isolone 4 mg tablets in a dose pack active Not Available Not Available Not Available amoxicillin 875 mg-potassiu m clavulanate 125 mg tablet active Not Available Not Available Not Available Aleve active Not Available Not Availa ble Not Available Vitamin D active Not Available Not Asia ilable Not Available multivitami n active Not Available Not Available Not Available Baby Aspirin active Not Available Not Available Not Available Victoza 3-Jeff 0.6 mg/0.1 mL (18 mg/3 mL) subcutaneou s pen injector INJECT 1.8MG(0.3 ML) UNDER SKIN 12/25 completed Not Available Not Available Not Available Claritin-D active Not Available Not Av ailable Not Available Contrave active Not Available Not Avai lable Not Available Ozempic 0.25 mg or 0.5 mg (2 mg/1.5 mL) subcutaneou s pen injector Inject 0.25 mg every week by subcutane ous route. 12/25 completed Not Available Not Available Not Available Mounjaro 2.5 mg/0.5 mL subcutaneou s pen injector Inject 2.5 mg by subcutane ous route. 12/25 completed Not Available Not Available Not Available Vitals Date Recorded Body height Body mass index (BMI) Body weight Systolic blood pressure Diastolic blood pressure Provider Name and Address Organization Details Last Updated DateTime 10/09/2022 172.72 cm 33.5 kg/m2 78903.32 g 140 mm[Hg] 90 mm[Hg] [facility] 3 09:44:49 Date Recorded Body height Body mass index (BMI) Body weight Systolic blood pressure Diastolic blood pressure Systolic blood pressure Diastolic blood pressure Provider Name and Address Organization Details Last Updated DateTime 3 172.72 cm 34.1 kg/m2 276823. 69 g 176 mm[Hg] 103 mm[Hg] 180 mm[Hg] 120 mm[Hg] [facility] 3 16:21:03 Date Recorded Body height Body mass index (BMI) Body weight Systolic blood pressure Diastolic blood pressure Systolic blood pressure Diastolic blood pressure Provider Name and Address Organization Details Last Updated DateTime 3 172.72 cm 32.7 kg/m2 59248.3 6 g 152 mm[Hg] 93 mm[Hg] 164 mm[Hg] 92 mm[Hg] [facility] 3 10:12:12 Date Recorded Body height Body mass index (BMI) Body weight Systolic blood pressure Diastolic blood pressure Provider Name and Address Organization Details Last Updated DateTime 01/24/2023 172.72 cm 32.2 kg/m2 54639.86 g 137 mm[Hg] 93 mm[Hg] [facility] 09:53:57 Date Recorded Body height Body mass index (BMI) Body weight Systolic blood pressure Diastolic blood pressure Provider Name and Address Organization Details Last Updated DateTime 03/04/2023 172.72 cm 31.8 kg/m2 74611.88 g 158 mm[Hg] 102 mm[Hg] Hanna Wheeler [facility] 11:25:19 Social History None recorded. Functional Status None recorded. Mental Status None recorded. Family History Relationship Description Onset Age of this Age Resolved Age Notes LastModified by Organization Details LastModified Time Mother Obesity Not available 09/28/2022 11:39:00 Mother Diabetes mellitus Not available 2022 11:39:12 Mother Hypertensive disorder Not available 2022 11:39:30 Mother Heart disease Not available 2022 11:39:49 Mother Cerebrovascu lar accident Not available 11:40:09 Sister Obesity Not available 09/28/2022 11:39:00 Sister Bipolar disorder Not available 2022 11:40:40 Brother Diabetes mellitus Not available 2022 11:39:12 Brother Heart disease brothe rs Not available 09/28/2022 11:39:49 Brother Cerebrovascu lar accident Not available 11:40:09 Brother Alcoholism Not avail able 09/28/2022 11:40:58 Father Bipolar disorder Not available 2022 11:40:40 Father Alcoholism Not availa ble 09/28/2022 11:40:58 Medical History Condition Response High Cholesterol Y Gynecological History Statement/Question Response Age of first menstrual cycle 13 Current Control Method Tubal Ligat ion Obstetrics History GPAL:G 6 P 4 0 0 4 Type Value Full Term 4 Living 4 Total 6 Past Encounters Encounter ID Performer Location Encounter Start Date Encounter Closed Date Diagnosis/Indication Diagnosis SNOMED-CT Code Diagnosis ICD10 Code Diagnosis Note [id number] Alfredo Blanchard MD [place] [address] [address] 09/28/2022 11:03:28 09/30/2022 14:04:34 Obesity 713510805 E66.9 This patient is a 72-year-ol d female who presents for weight management . We took a very thorough history. We talked about some of her goals. Talked about some of her challenges . We talked about some of her previous efforts in weight loss and her activity level. We talked about limitation s for activity. Talked about energy consumptio n energy expenditur e. She was given recommenda tions and some of these areas. We talked about the importance of resistance training and cardiovasc ular exercise. We talked about her medical history in its relationsh ip to excess body weight. We talked about treatment options. We talked about the evaluation that is appropriat e for beginning weight management . We talked about her diet and our dietitian. We agreed to a dietitian consult. We agreed to a sleep study. We agreed to metabolic testing. We performed body compositio n testing today. We reviewed those results and talked about their significan ce. We spent over 1 hour together. More than 50% was counseling . We agreed to come together in 2 weeks and initiate treatment. dietitian consult, labs, body compositio n was done, basil metabolic great will be completed. [id number] Alfredo Blanchard MD [place] [address] [address] 10/09/2022 09:31:29 10/12/2022 12:57:14 Prediabetes 425521547 R73.03 This patient is a 72-year-ol d female presents for follow-up on weight management . We spent 20 minutes face-to-fa ce. More than 50% was counseling . Talked about medication s. Talked about strategies for using medication s to help with she has a pre diabetes diagnosis. We reviewed side effects and efficacy we agreed to attempt to get the GLP 1 agonist cover. We are going to start with the new 1. Would then try Ozempic and Victoza For coverage. We agreed we would use phentermin e and if required. Phentermin e and topiramate . We reviewed diet, she saw the dietitian, she had metabolic testing. Her metabolism is 128% of expected. Obesity 247297447 E66.9 [id number] Alfredo Blanchard MD [place] [address] [address] 11/10/2022 15:53:39 11/11/2022 10:55:50 Prediabetes 300367801 R73.03 72 year female who presents for follow-up on obesity. She has been unable to get GLP 1 agonist. We agreed Contrave. She will obtain Contrave from our office. We talked about side effects, dosing. we will also try to get Victoza. We spent over 20 minutes face-to-fa ce. More than 50% was counseling . Obesity 153098900 E66.9 [id number] Alfredo Blanchard MD [place] [address] [address] 12/25/2022 10:05:41 12/27/2022 12:05:49 Obesity 876322597 E66.9 This patient is a 72-year-ol d female presents for weight management follow-up. She has been losing about a lb and half a week for last 6 weeks. She started Contrave. She is up to the highest dose. She is tolerating it well. She is losing weight study. She is changing her eating habits and getting more active. She is really getting solid start. She continues to see the dietitian. She is going to continue to refine her diet and exercise [id number] Alfredo Blanchard MD [place] [address] [address] 01/24/2023 09:44:06 01/26/2023 10:27:19 Obesity 153348966 E66.9 This patient is a 72-year-ol d female presents for weight management follow-up. She has been losing about a lb and half a week for last 6 weeks. She started Contrave. She is up to the highest dose. She is tolerating it well. She is losing weight steady. She is changing her eating habits and getting more active. She is really getting solid start. She continues to see the dietitian. She is going to continue to refine her diet and exercise. We spent 20 minutes face-to-fa ce. More than 50% was counseling . [id number] [facility] Watkins [place] [address] [address] 03/04/2023 10:52:48 03/04/2023 15:32:33 Obesity 571763168 E66.9 she is doing well and has made significan t positive diet and exercise changesshe is going to continue meeting with the terminal system operator. We discussed portion sizes, protein, meal prepping, etc.Doing well with incorporat ing regular exercise, encouraged to continue!H er BP is elevated today. She states she was at her PCP office 1 week ago and it was 123/80. She monitors her BP at home and its been wnl, was normal yesterday. She denies any symptoms today. Encouraged her to recheck BP at home, if elevation continues she is aware she would need to discontinu e contrave and follow-up with her PCP. Reviewed risk. Reviewed ED precaution s. Encouraged to send BP log via portal to our office.RTC in 1 month or sooner if needed Time spent in visit is a total of 25 mins with at least 50% of visit consisting of counseling and review of plan of care. Health Concerns Section Related Observation LastModified by Organization Detai ls LastModified Time None Recorded Concern Status LastModified by Organization Details LastModified Time None Recorded Advance Directives Directive None Recorded Payers Encounter Date Sequence Insurance Name Policy Number Policy Jimenez Covered Member ID Jimenez Member ID Guarantor Name 10/09/2022 2 FOR LIFE () [id number] Natasha P Orzulak [id number] Natasha P Orzulak 10/09/2022 1 [employer] (MEDICARE) Natasha P Orzulak [id number] Natasha P Orzulak 11/10/2022 2 FOR LIFE () [id number] Natasha P Orzulak [id number] Natasha P Orzulak 11/10/2022 1 [employer] (MEDICARE) Natasha P Orzulak [id number] Natasha P Orzulak 12/25/2022 2 FOR LIFE () [id number] Natasha P Orzulak [id number] Natasha P Orzulak 12/25/2022 1 [employer] (MEDICARE) Natasha P Orzulak [id number] Natasha P Orzulak 01/24/2023 2 FOR LIFE () [id number] Natasha P Orzulak [id number] Natasha P Orzulak 01/24/2023 1 [employer] (MEDICARE) Natasha P Orzulak [id number] Natasha P Orzulak 03/04/2023 2 FOR LIFE () [id number] Natasha P Orzulak [id number] Natasha P Orzulak 03/04/2023 1 [employer] (MEDICARE) Natasha P Orzulak [id number] Natasha P Orzulak Notes Date Note Type Note Provider Name and Address Organization Details Recorded Time 3 text/html This patient is a 72-year-old female presents for follow-up on weight management. We spent 20 minutes [id number]. More than 50% was counseling. Talked about medications. Talked about strategies for using medications to help with she has a pre diabetes diagnosis. We reviewed side effects and efficacy we agreed to attempt to get the GLP 1 agonist cover. We are going to start with the new 1. Would then try Ozempic and Victoza For coverage. We agreed we would use phentermine and if required. Phentermine and topiramate. We reviewed diet, she saw the dietitian, she had metabolic testing. Her metabolism is 128% of expected. Alfredo Blanchard MD [address], [place], [address], [facility] 10/09/2022 10:18:44 3 text/html 72 year female who presents for follow-up on obesity. She has been unable to get GLP 1 agonist. We agreed Contrave. She will obtain Contrave from our office. We talked about side effects, dosing. we will also try to get Victoza. We spent over 20 minutes [id number]. More than 50% was counseling. Alfredo Blanchard MD [address], [place], [address], [facility] 11/10/2022 22:51:23 3 text/html This patient is a 72-year-old female presents for weight management follow-up. She has been losing about a lb and half a week for last 6 weeks. She started Contrave. She is up to the highest dose. She is tolerating it well. She is losing weight study. She is changing her eating habits and getting more active. She is really getting solid start. She continues to see the dietitian. She is going to continue to refine her diet and exercise Alfredo Blanchard MD [address], [place], [address], [facility] 12/25/2022 10:53:34 3 text/html This patient is a 72-year-old female presents for weight management follow-up. She has been losing about a lb and half a week for last 6 weeks. She started Contrave. She is up to the highest dose. She is tolerating it well. She is losing weight steady. She is changing her eating habits and getting more active. She is really getting solid start. She continues to see the dietitian. She is going to continue to refine her diet and exercise. We spent 20 minutes [id number]. More than 50% was counseling. Alfredo Blanchard MD [address], [place], [address], [facility] 01/25/2023 16:08:29 3 text/html 72yopresents for weight management follow-upshe is currently on contrave managed by Dr. Alas well since starting contrave, denies any negative SEless cravings, eating smaller portion sizesshe is meeting with the terminal system operator and doing well. has made positive changesexercising 2-3 times per week, cardio and light weights [facility] Watkins [address], [place], [address], [facility] 03/04/2023 14:32:11 OBGyn Episode No OBEpisode recorded.
[2024-08-16 19:32] LABS: Add Urine Microscopic? YES; Appearance Urine Cloudy (Clear); Bacteria Urine 4+ /hpf; Bilirubin Urine Negative (Negative); Blood Urine Negative (Negative); Color Urine Yellow (Yellow); Glucose Urine UA Negative (Negative); Ketones Urine Negative (Negative); Leukocyte Esterase Ur 3+ LEU/UL (Negative); Nitrate Urine Positive (Negative); Non Pathogenic Casts 0-2; Protein Urine Negative (Negative); RBC Urine 0-2 /hpf (0-2); Specific Grav Ur 1.019 (1.001-1.035); Squamous Epithelial Cell Urine Few /hpf (Few); Urobilinogen Urine 0.2 mg/dL (<2.0); WBC Urine 21-50 /hpf (0-3)
== END 2024-08-16 14:23 | disposition home or self-care (01) ==
LOC: ANHGOSHLAB 14:23
PROVIDERS: PCP Internal Medicine; Visit Provider Clinical Nurse Specialist
DX: N39.0 Urinary tract infection, site not specified (principal)
CPT/HCPCS: 81001; 87086; 87181

== ENCOUNTER 2024-10-09 07:39 | Outpatient (CLI) | payer MEDICARE, OTHER, SELFPAY ==
--- OUTSIDE RECORDS SUMMARY | 2024-10-09 07:42 | XMS_ITS | Continuity of Care Document ---
Author Organization [facility] Address [address] [place] [address] Phone Care Team Providers Care Senior Process Control Tech Name Role Phone Hossein Santacruz MD Unavailable [...] Diagnoses Date Provider Providers Copied on Encounter [facility], [address] [place] [address] [address], [place], [place], [id number], tel:[phone] SEC [place] Professional 1 month s/p TORIC IOL w/LensAR (chief complaint) Post op visit 1 Noam Catalan. [address], [address], [place], [place], [address], [place]. tel:[phone] Referring Provider: Brooke Durham OD, [address] [place] [address], [address]. tel:[phone] [facility], [address] [place] [address] [address], [place], [place], [id number], tel:[phone] SEC [place] Professional 1 week s/p TORIC IOL w/LensAR (chief complaint) Post op visit 1 Noam Catalan. [address], [address], [place], [place], [address], [place]. tel:[phone] Referring Provider: Brooke Durham OD, [address] [place] [address], [address]. tel:[phone] [facility], [address] [place] [address] [address], [place], [place], [id number], tel:[phone] SEC [place] Professional 1 day po Toric PCIOL OS (02/11/21) (chief complaint) Post op visit 1 Noam Catalan. [address], [address], [place], [place], [address], . tel:[phone] Referring Provider: Brooke Durham OD, [address] [place] [address], [address]. tel:[phone] [facility], [address], [place], [place], [address], [place] [phone] [facility] No Information 1 Noam Catalan. [address] [employer], [facility] [place], [address], . tel:[phone] Referring Provider: Brooke Durham OD, [address] [place] [address], [address]. tel:[phone] [facility], [address], [place], [place], [address], [place] tel:[phone] SEC Foreign [place] Professional No Information 1 Noam Catalan. [address], [facility] [place], [address], . tel:[phone] Referring Provider: Brooke Durham OD, [address] [place] [address], [address]. tel:[phone] [facility], [address] [place] [address] [address], [place], [place], [id number], [place] tel:[phone] SEC Foreign [place] Professional No Information 1 Noam Catalan. [address] [employer], [facility] [place], [address], . tel:[phone] [facility], [address], [place], [place], [address], [place] tel:[phone] SEC Foreign [place] Professional 2 wk po PCIOL OD (01/14/21) (chief complaint) Post op visit 1 Noam Catalan. [address] [employer] [address] [employer] [address], [facility] [place], [address], . tel:[phone] Referring Provider: Brooke Durham OD, [address] [place] [address], [address]. tel:[phone] [facility], [address], [place], [place], [address], [place] tel:[phone] SEC Foreign [place] Professional Post-Op (chief complaint) Post op visit 1 Noam Catalan. [address], [address] [place], [address], [place]. tel:[phone] Referring Provider: Brooke Durham OD, [address] [place] [address], [address]. tel:[phone] [facility], [address], [place], [place], [address], [place] tel:[phone] [facility] No Information 1 Noam Catalan. [address], [address] [place], [address], [place]. tel:[phone] Referring Provider: Brooke Herminio OD, [address] [place] [address], [address]. tel:[phone] [facility], [address], [place], [place], [address], [place] tel:[phone] SEC Foreign [place] Professional No Information 1 Noam Catalan. [address] [facility], [address] [place], [address], [place]. tel:[phone] Referring Provider: Brooke [place] OD, [address] [place] [address], [address]. tel:[phone] [facility], [address], [place], [place], [id number], [place] tel:[phone] SEC Tristan Garcia No Information 1 Noam Catalan. [address], [address] [place], [address], [place]. tel:[phone] [facility], [address], [place], [place], [address], [place] [phone] SEC Ara Jade SALLY No Information 1 Noam Catalan. [address] [employer] [address], [address], [place], [place], [address], [place]. tel:[phone] Office/outpa tient Visit, [facility], [address], [place], [place], [address], [place] tel:[phone] SEC Foreign [place] Professional Cataract evaluation (chief complaint) Anatomical narrow angle of both eyesAge-relat ed nuclear cataract, bilateralEpir etinal membrane (ERM) of right eye 1 Noam Catalan. [address], [address], [place], [place], [address], [place]. tel:[phone] Referring Provider: Brooke Durham OD, [address] [place] [address] [place], [address]. tel:[phone] [facility], [address], [place], [place], [address], [place] [phone] SEC [place] Professional No Information 1 Noam Catalan. [address], [place], [place], [address], [place]. tel:[phone] Referring Provider: Brooke Durham OD, [address] [place] [address] [place], [address]. tel:[phone] Family History Family Member Type Diagnosis Age At Onset Problem Family history of Diabetes m damian Payers Payer name Insurance type Covered green party ID Authoriza tion(s) No Information Social History [...]
--- NOTE | 2024-10-29 12:12 | WPDHOMESLEEP ---
Sleep Study - Home Unattended Date of Study: 10/09/24 Ordering Provider: Praveena Mason DO Interpreting Provider: Praveena Mason DO Home Sleep Study Type: Watch PAT Height: 1.73 m Weight: 82.554 kg Body Mass Index: 27.6 Neck Circumference (inches): 14.25 [place]: 0 Reason for Sleep Study Re-evaluation of TONIA using mandibular advancement device Sleep History The patient is a 74-year-old female with previously diagnosed mild sleep apnea that had a sleep study ordered for re-evaluation of sleep apnea while using her mandibular advancement device. The patient denies awakening from sleep short of breath. She denies awakening at night with heartburn, belching or cough. She rarely snores and is rarely loud enough that others complain. He rarely has trouble sleeping when she has a cold. She denies waking up gasping for air throughout the night. She denies having breathing problems at night observed by herself or others. She rarely sweats excessively at night. She rarely has heart palpitations or irregular heartbeats during the night. She denies falling asleep during the day and while driving. She denies sleep paralysis, cataplexy and hypnagogic/ hypnopompic hallucinations. She denies having trouble at school or work due to sleepiness. She denies feeling afraid of going to sleep. She denies having nightmares. She denies remembering her dreams. She denies having thoughts racing through her mind. She denies feeling sad, depressed or anxious. She denies having muscular tension. She denies noticing parts of her body jerk. She denies kicking during the night. She denies having crawling and aching feelings in her legs and denies having leg pain during the night. She denies grinding her teeth during sleep and denies awakening with morning jaw pain. She has rarely bothered by pain during the day but never awakened by pain during the night. She rarely wakes up feeling stiff in the morning. She rarely wakes up with sore or achy muscles. She denies waking up with pain in the neck, spine and other joints. She goes to bed at 9:00 p.m. every night. It takes her 15-25 minutes to fall asleep. She wakes up 1-2 times throughout the night to urinate and is able to fall back asleep immediately. She wakes up at 6:15 a.m. on weekdays and at 7:30 a.m. on the weekends. She typically gets 5-7 hours of sleep per night. She will stay in bed for 5-15 minutes after waking up in the morning. She currently lives with her significant other. He denies consuming any caffeinated beverages within 2 hours of bedtime. She denies engaging in physical exercise before bedtime. She will watch television before falling asleep. He denies taking naps in the afternoon or the evening. She consumes 2 cups of caffeinated beverage per day. She consumes 1-2 alcoholic beverages twice per week. She denies tobacco and recreational drug use. [facility] Past Medical History Medical History Anxiety Encounter for screening mammogram for breast cancer Gastroenteritis Primary osteoarthritis of right knee Primary osteoarthritis of right hip Lumbar radiculopathy Elevated blood pressure reading Obesity (BMI 30.0-34.9) Need for hepatitis C screening test Screening for osteoporosis Eustachian tube dysfunction Cerumen impaction Surgical History Surgical History Hx of cataract surgery (~02/2021) History of cataract surgery (~01/2021) Family History Family History Mother Diabetes mellitus Family history of osteoporosis Hypertension Family history of cardiovascular disease Family history of coronary artery disease Father Family history of alcoholism, Onset Age: 57 Family history of liver disease, Onset Age: 57 Family history of hepatitis, Onset Age: 57 Family history of kidney disease, Onset Age: 57 Sibling Acute myocardial infarction, Onset Age: 60 Social History Social History Social History: Caffeine-coffee daily Smoking status: Never smoker Alcohol intake: current Drinks per week: 3 Alcohol use details: wine Substance use type: does not use Do You Feel Safe in your Home?: Yes Lack of Transportation: No Lack of Food: Never True Current Housing: I Have Housing Concerned About Future Housing: No Difficulty Paying Gas/Electric Bills: No Difficulty Paying for Meds: No Currently Unemployed: No Education: High School Diploma/GED Difficulty w/ Childcare or Family Care: No Living arrangements: with family Medications Home Medications ?Medication ?Instructions ?Recorded ?Confirmed ?Type cholecalciferol (vitamin D3) 25 25 mcg PO DAILY 05/12/21 05/28/24 History mcg (1,000 unit) capsule multivitamin (Daily Multi-Vitamin 2 tablet PO DAILY 02/01/22 05/28/24 History tablet) atorvastatin 20 mg tablet 20 mg PO DAILY #90 tabs 12/12/23 05/28/24 Rx methocarbamol 500 mg tablet 500 mg PO Q6H PRN muscle 05/28/24 Rx pain/spasm #30 tabs fluticasone propionate 50 2 spray intranasal DAILY #16 grams 06/04/24 Rx mcg/actuation nasal spray,suspension (Flonase Allergy Relief) valacyclovir 1 gram tablet See Rx Instructions .Route 06/04/24 Rx .COMPLEX #20 tabs losartan 25 mg tablet 25 mg PO DAILY #90 tabs 08/08/24 Rx alprazolam 0.25 mg tablet (Xanax) 0.25 mg PO QHS PRN anxiety #10 tabs 08/16/24 08/16/24 Rx eszopiclone 2 mg tablet (Lunesta) 2 mg PO QHS #1 tablet 09/05/24 Rx Sleep Procedure The sleep study was completed using [employer] a technically adequate device with seven channels: peripheral arterial tone, actigraphy, body position, snore, respiratory movement, pulse oximetry, sleep staging, and heart rate. Prior to using the device, the patient received verbal and written instructions for its application and was provided with the help desk phone number for additional telephonic instruction with 24-hour availability of qualified personnel to answer questions. The study was scored using CMS guidelines. Sleep Architecture The total recording time is 10 hrs, 16 min. The total sleep time is 9 hrs, 34 min. Sleep latency is 6 minutes. REM latency is 202 minutes. The patient had 7 episodes of waking. Sleep architecture shows 12.5% deep sleep, 70.3% light sleep, and (as % Total Sleep Time) showed NREM (Light 70.3%; Deep 12.5%), and a 17.1% stage REM. The patient spent 34.8% of total sleep time in the supine position. Sleep efficiency was 93.18. Respiratory Analysis The overall AHI (pAHI 4%:) is 1.7. The overall AHI (pAHI 3%:) is 6.9. The central AHI is 3.0. The AHI was 6.2 in NREM and 10.5 in REM sleep. The AHI was 10.3 in Supine and 5.1 in Non-supine sleep. Percent of Tavares Mccoy respirations is 0.0. Oximetry Data The oxygen desaturation index (SOPHIA 4%:) is 2.0. The mean saturation is 94%, and the lowest saturation is 86%. Time spent with saturation < 88% is 0.0 minutes. Snoring Profile Snoring average intensity is 42 dB. The patient snored above 45 decibels for 64.0 minutes, 11.1% of sleep time. Cardiac Profile The average pulse rate is 76 beats per minutes. The lowest pulse rate is 60 bpm. The highest pulse rate reported is 96 bpm. Atrial fibrillation was not detected. Premature beats occur <0.1 per minute. Assessment and Plan Assessment and Plan (1) TONIA (obstructive sleep apnea): Code(s): G47.33 - Obstructive sleep apnea (adult) (pediatric) Status: Acute Assessment and Plan: The patient had an overall AHI of 1.7 with desaturation down to 86%. Based on these results, the patient's sleep apnea is adequately treated using the mandibular advancement device. Data The data obtained during this sleep study is adequate for interpretation. Certification This sleep study has been reviewed by a board certified sleep medicine physician.
[2024-10-29 12:18] VITALS: BMI 27.6
== END 2024-10-10 10:04 | disposition home or self-care (01) ==
LOC: ANHCSM 07:40
PROVIDERS: PCP Internal Medicine; Visit Provider Family Medicine
DX: G47.33 Obstructive sleep apnea (adult) (pediatric) (principal)
CPT/HCPCS: 95800

== ENCOUNTER 2024-11-13 09:40 | Outpatient (CLI) | payer MEDICARE, OTHER, SELFPAY ==
--- OUTSIDE RECORDS SUMMARY | 2024-11-13 09:49 | XMS_ITS | Clinical Summary ---
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 Gender Identity Not on file Sexual Orientation Not on file Obstetrics History Last Filed Vital Signs Vital Sign Reading Time Taken Comments Blood Pressure 130/84 10/07/2022 11:37 AM CDT Pulse 92 10/07/2022 11:37 AM CDT Temperature 37.1 C (98.8 F) 10/07/2022 11:37 AM CDT Respiratory Rate 22 10/07/2022 11:37 AM CDT Oxygen Saturation 98% 10/07/2022 11:37 AM CDT Inhaled Oxygen Concentration - - Weight 95.3 kg (210 lb) 10/07/2022 11:37 AM CDT Height 175.3 cm (5' 9 ) 10/07/2022 11:37 AM CDT Body Mass Index 31.01 10/07/2022 11:37 AM CDT Plan of Treatment Health Maintenance Due Date Last Done Comments Breast Cancer Screening-Mammogram 1952 Colon Cancer Screening-Colonoscopy 1950 Depression Screening 1952 Fall Risk Assessment 1950 Hepatitis C Screening 1950 Osteoporosis Screening-Bone Density Scan 1952 Hepatitis B Screening 1970 Zoster Vaccine (1 of 2) 2002 Well Visit 65+ 2017 DTaP/Tdap/Td Vaccine (2 - Td or Tdap) 02/13/2023 02/13/2013 Covid-19 Vaccine (3 - 2023-2 5 season) 2024 09/23/2020, 09/04/2020 Influenza Vaccine (Season Ended) 2025 05/15/2022, 05/12/2021, 04/22/2020, Additional history exists Pneumococcal vaccine 65+ Completed 06/17/2020, 07/2017 Insurance MEDICARE [facility] Care Teams Corporate Quality Manager Relationship Specialty Start Date End Date Mason Herrera DO PCP - General Internal Medicine 10/07/22
--- OUTSIDE RECORDS SUMMARY | 2024-11-13 09:50 | XMS_ITS | Continuity of Care Document ---
Author Organization [facility] Address [address] [place] [address] Phone Care Team Providers Care Deputy Sheriff Chief Name Role Phone Hossein Santacruz MD Unavailable [...] Diagnoses Date Provider Providers Copied on Encounter [facility], [address] [place] [address] [address], [place], [place], [address], tel:[phone] SEC [place] Professional 1 month s/p TORIC IOL w/LensAR (chief complaint) Post op visit 1 Noam Catalan. [address], [address], [place], [place], [address], [place]. tel:[phone] Referring Provider: Brooke Durham OD, [address] [place] [address], [address]. tel:[phone] [facility], [address] [place] [address] [address], [place], [place], [address], tel:[phone] SEC [place] Professional 1 week s/p TORIC IOL w/LensAR (chief complaint) Post op visit 1 Noam Catalan. [address], [address], [place], [place], [address], [place]. tel:[phone] Referring Provider: Brooke Durham OD, [address] [place] [address], [address]. tel:[phone] [facility], [address] [place] [address] [address], [place], [place], [address], tel:[phone] SEC Foreign [place] Professional 1 day po Toric PCIOL OS (02/11/21) (chief complaint) Post op visit 1 Noam Catalan. [address], [address], [place], [place], [address], . tel:[phone] Referring Provider: Brooke Durham OD, [address] [place] [address], [address]. tel:[phone] [facility], [address], [place], [place], [address], [place] [phone] [facility] No Information 1 Noam Catalan. [address] [employer] [employer], [facility] [place], [address], . tel:[phone] Referring Provider: Brooke Durham OD, [address] [place] [address], [address]. tel:[phone] [facility], [address], [place], [place], [address], [place] tel:[phone] SEC Foreign [place] Professional No Information 1 Noam Catalan. [address], [facility] [place], [address], . tel:[phone] Referring Provider: Brooke Durham OD, [address] [place] [address], [address]. tel:[phone] [facility], [address] [place] [address] [address], [place], [place], [address], [place] tel:[phone] SEC Foreign [place] Professional No Information 1 Noam Catalan. [address] [employer] [employer], [facility] [place], [address], . tel:[phone] [facility], [address], [place], [place], [address], [place] tel:[phone] SEC Foreign [place] Professional 2 wk po PCIOL OD (01/14/21) (chief complaint) Post op visit 1 Noam Catalan. [address] [employer], [facility] [place], [address], . tel:[phone] Referring Provider: Brooke Durham OD, [address] [place] [address], [address]. tel:[phone] [facility], [address], [place], [place], [address], [place] tel:[phone] SEC Foreign [place] Professional Post-Op (chief complaint) Post op visit 1 Noam Catalan. [address], [address] [place], [address], [place]. tel:[phone] Referring Provider: Brooke Durham OD, [address] [place] [address], [address]. tel:[phone] [facility], [address], [place], [place], [address], [place] tel:[phone] [facility] No Information 1 Noam Catalan. [address], [address] [place], [address], [place]. tel:[phone] Referring Provider: Brooke Herminio OD, [address] [place] [address], [address]. tel:[phone] [facility], [address], [place], [place], [address], [place] tel:[phone] SEC Foreign [place] Professional No Information 1 Noam Catalan. [address], [address] [place], [address], [place]. tel:[phone] Referring Provider: Brooke Eldridge OD, [address] [place] [address], [address]. tel:[phone] [facility], [address], [place], [place], [address], [place] tel:[phone] SEC Tristan Garcia No Information 1 Noam Catalan. [address], [address] [place], [address], [place]. tel:[phone] [facility], [address], [place], [place], [address], [place] [phone] SEC Ara Jade SALLY No Information 1 Noam Catalan. [address] [employer], [address], [place], [place], [address], [place]. tel:[phone] Office/outpa tient Visit, [facility], [address], [place], [place], [address], [place] tel:[phone] SEC [place] Professional Cataract evaluation (chief complaint) Anatomical narrow angle of both eyesAge-relat ed nuclear cataract, bilateralEpir etinal membrane (ERM) of right eye 1 Noam Catalan. [address], [address], [place], [place], [address], [place]. tel:[phone] Referring Provider: Brooke Durham OD, [address] [place] [address] [place], [address]. tel:[phone] [facility], [address], [place], [place], [address], [place] [phone] SEC Foreign [place] Professional No Information 1 Naom Catalan. [address], [place], [place], [address], [place]. tel:[phone] Referring Provider: Brooke Durham OD, [address] [place] [address] [place], [address]. tel:[phone] Family History Family Member Type Diagnosis Age At Onset Problem Family history of Diabetes m damian Payers Payer name Insurance type Covered constitution party ID Authoriza tion(s) No Information Social [...]
[2024-11-13 13:10] LABS: Basophils Absolute Auto 0.1 K/mm3 (0.0-0.1); Basophils Percent Auto 0.7 % (0.2-1.2); Eosinophils Absolute Auto 0.1 K/mm3 (0-0.3); Hematocrit 45.5 % (37.0-47.0); Hemoglobin 14.6 g/dL (12.0-15.0); Immature Granulocyte Absolute 0.03 K/mm3 (0.00-0.031); Immature Granulocyte Percent A 0.4 % (0-0.5); Lymphocytes Absolute Auto 1.77 K/mm3 (0.9-3.2); Lymphocytes Percent Auto 25.2 % (18.3-44.2); Mean Corpuscular HGB Conc 32.1 g/dl (32-36); Mean Corpuscular Hemoglobin 30.5 pg (26-34); Mean Corpuscular Volume 95.2 fl (80-100); Mean Platelet Volume 10.6 fl (7.4-10.4); Monocytes Absolute Auto 0.5 K/mm3 (0.1-0.6); Monocytes Percent Auto 7.4 % (2.6-8.5); Neutrophils Absolute Auto 4.6 K/mm3 (1.3-6.7); Neutrophils Percent Auto 65.3 % (45.5-73.1); Platelet Count Result 302 k/mm3 (150-375); Red Blood Count 4.78 M/mm3 (4.2-5.4); Red Cell Distribution Width 12.9 % (11.5-14.5)
[2024-11-13 13:30] LABS: Alanine Aminotransferase 26 U/L (6-35); Albumin Level 4.6 g/dL (3.5-5.1); Alkaline Phosphatase 76 U/L (38-126); Anion Gap 12 mmol/L (4-12); Aspartate Amino Transferase 33 U/L (14-36); Bilirubin,Total 1.1 mg/dL (0.2-1.3); Blood Urea Nitrogen 16 mg/dL (7-17); Calcium 9.8 mg/dL (8.4-10.2); Carbon Dioxide 24 mmol/L (22-30); Chloride 103 mmol/L (98-107); Cholesterol 205 mg/dL (0-200); Estimated Glomerular Filt Rate > 60; Glucose 85 mg/dL (65-110); HDL Direct 96 mg/dL; Potassium 4.3 mmol/L (3.4-5.0); Sodium 139 mmol/L (137-145); Triglycerides 107 mg/dL (<150)
[2024-11-13 13:41] LABS: LDL Cholesterol Direct 76 mg/dL
[2024-11-13 21:43] LABS: Hemoglobin A1C 5.1 % (<5.7)
== END 2024-11-13 09:41 | disposition home or self-care (01) ==
PROVIDERS: PCP Internal Medicine; Visit Provider Clinical Nurse Specialist
DX: I10 Essential (primary) hypertension (principal); F41.9 Anxiety disorder, unspecified; R74.01 Elevation of levels of liver transaminase levels; R73.01 Impaired fasting glucose; Z13.228 Encounter for screening for other metabolic disorders; Z13.29 Encounter for screening for other suspected endocrine disorder; Z13.0 Encounter for screening for diseases of the blood and blood-forming organs and certain disorders involving the immune mechanism
CPT/HCPCS: 36415; 80053; 80061; 83036; 84443; 85025

== ENCOUNTER 2024-11-14 13:26 | Outpatient (CLI) | payer MEDICARE, OTHER, SELFPAY ==
--- NOTE | ~2024-11-14 | XR_ITS ---
3 VIEWS LUMBAR SPINE Ordering provider: MATEO Rodriguez History: . M54.16 - Radiculopathy, lumbar region/RT SIDE PAIN . Comparison: None. FINDINGS: VERTEBRAL BODIES:Anterolisthesis at the level of L4-L5 with highly suggestive spondylolysis. Otherwis e, No visible fracture or subluxation. DISK SPACES: Narrowing of the disc L4-L5 and L5-S1. SOFT TISSUES: Normal. Atherosclerotic changes of the aorta. IMPRESSION: No acute osseous abnormality lumbar spine. Anterolisthesis at the level of L4-L5. Degenerative disc disease at the level of L4-L5 and L5-S1. Reviewed, dictated and finalized at location A.
--- OUTSIDE RECORDS SUMMARY | 2024-11-14 13:36 | XMS_ITS | Clinical Summary ---
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
--- OUTSIDE RECORDS SUMMARY | 2024-11-14 13:36 | XMS_ITS | Referral Summary ---
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
--- OUTSIDE RECORDS SUMMARY | 2024-11-14 13:37 | XMS_ITS | Continuity of Care Document ---
Author Organization [facility] Address [address] [place] [address] Phone Care Team Providers Care Border Guard Name Role Phone Hossein Santacruz MD Unavailable [...] Diagnoses Date Provider Providers Copied on Encounter 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 [address], [place], [place], [address], [place]. tel:[phone] Referring Provider: Brooke Durham OD, [address] [place] [address], [address]. tel:[phone] 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 [address], [place], [place], [address], [place]. tel:[phone] Referring Provider: Brooke Durham OD, [address] [place] [address], [address]. tel:[phone] [facility], [address] [place] [address] [address], [place], [place], [address], tel:[phone] SEC Foreign [place] Professional 1 day po Toric PCIOL OS (02/11/21) (chief complaint) Post op visit 1 Noam Catalan. [address], [place], [place], [address], . tel:[phone] Referring Provider: Brooke Durham OD, [address] [place] [address], [address]. tel:[phone] [facility], [address], [place], [place], [address], [place] [phone] [facility] No Information 1 Noam Catalan. [address], [facility] [place], [address], . tel:[phone] Referring Provider: Brooke Durham OD, [address] [place] [address], [address]. tel:[phone] [facility], [address], [place], [place], [address], [place] tel:[phone] SEC Foreign FONTANE[place] Professional No Information 1 Noam Catalan. [address] [employer], [facility] [place], [address], . tel:[phone] Referring Provider: Brooke Durham OD, [address] [place] [address], [address]. tel:[phone] [facility], [address] [place] [address] [address], [place], [place], [address], [place] tel:[phone] SEC Foreign FONTANE[place] Professional No Information 1 Noam Catalan. [address], [facility] [place], [address], . tel:[phone] 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 [address] [employer], [facility] [place], [address], . tel:[phone] Referring Provider: Brooke Durham OD, [address] [place] [address], [address]. tel:[phone] [facility], [address], [place], [place], [address], [place] tel:[phone] SEC Foreign FONT[place] Professional Post-Op (chief complaint) Post op visit 1 Noam Catalan. [address], [address] [place], [address], [place]. tel:[phone] Referring Provider: Brooke Durham OD, [address] [place] [address], [address]. tel:[phone] [facility], [address], [place], [place], [address], [place] tel:[phone] [facility] No Information 1 Noam Catalan. [address], [address] [place], [address], [place]. tel:[phone] Referring Provider: Brooke Herminio OD, [address] [place] [address], [address]. tel:[phone] [facility], [address], [place], [place], [address], [place] tel:[phone] SEC Foreign FONTANE[place] Professional No Information 1 Noam Catalan. [address], [address] [place], [address], [place]. tel:[phone] Referring Provider: Brooke Austin OD, [address] [place] [address], [address]. tel:[phone] [facility], [address], [place], [place], [address], [place] tel:[phone] SEC Tristan Garcia No Information 1 Noam Catalan. [address], [address] [place], [address], [place]. tel:[phone] [facility], [address], [place], [place], [address], [place] [phone] SEC Ara Jade SALLY No Information 1 Noam Catalan. [address] [employer], [address], [place], [place], [address], [place]. tel:[phone] Office/outpa tient Visit, [facility], [address], [place], [place], [address], [place] tel:[phone] [place] Professional Cataract evaluation (chief complaint) Anatomical narrow angle of both eyesAge-relat ed nuclear cataract, bilateralEpir etinal membrane (ERM) of right eye 1 Noam Catalan. [address], [place], [place], [address], [place]. tel:[phone] Referring Provider: Brooke Durham OD, [address] [place] [address] [place], [address]. tel:[phone] [facility], [address], [place], [place], [address], [place] [phone] SEC Foreign [place] Professional No Information 1 Noam Catalan. [address] [employer], [place], [place], [address], [place]. tel:[phone] Referring Provider: Brooke Durham OD, [address] [place] [address] [employer] [place], [address]. tel:[phone] Family History Family Member Type Diagnosis Age [...]
--- OUTSIDE RECORDS SUMMARY | 2024-11-14 13:37 | XMS_ITS | Data Portability ---
Author Organization [facility] [place] Address [address] [place] [address] Care Team Providers Care Director Of Sales Marketing Name Role Phone MITZIJA COLLAZO Primary Care Provider [phone] Assessment No assessment recorded. Plan of Treatment Reminders Order Date Submit Date Provider Last Modified By Organization Details Last Modified Time Details Appointments None recorded. Lab None recorded. Referral None recorded. Procedures None recorded. Surgeries None recorded. Imaging None recorded. Medication Orders Victoza 3-Jeff 0.6 mg/0.1 mL (18 mg/3 mL) subcutaneou s pen injector 2022 023 [id number], [address] [place], [id number], 3 10:12:23 Mounjaro 2.5 mg/0.5 mL subcutaneou s pen injector 2022 023 [facility], [address] [place] [address], [address], 3 10:12:17 Patient TargetsNo targets recorded. Patient InstructionsNo instructions recorded. Reason for Referral None Reported. Results Created Date Observation Date Name Description Value Unit Range Abnormal Flag Note LastModifiedBy Organization Detail LastModifiedTime 09/30/1909/29/2022 CBC W/DIF F WBC 4.9 10'3/ uL 3.6-10 .2 Not Available [facility] (Lab) [address], [place], [address], 09/30/2022 05:15:26 09/30/19 23 09/29/2022 CBC W/DIF F RBC 4.73 10'6/ uL (based on docume nted legal sex) 4.10-5 .30 Not Available [facility] (Lab) [address], [place], [address], 09/30/2022 05:15:26 09/30/19 23 09/29/2022 CBC W/DIF F HGB 13.7 g/dL (based on docume nted legal sex) 11.9-1 5.8 Not Available [facility] (Lab) [address], [place], [address], 09/30/2022 05:15:26 09/30/19 23 09/29/2022 CBC W/DIF F HCT 43.6 % (based on docume nted legal sex) 37.4-4 8.3 Not Available [facility] (Lab) [address], [place], [address], 09/30/2022 05:15:26 09/30/19 23 09/29/2022 CBC W/DIF F MCV 92.2 fL 82.0-9 9.0 Not Available [facility] (Lab) [address], [place], [address], 09/30/2022 05:15:26 09/30/19 23 09/29/2022 CBC W/DIF F MCH 29.0 pg 27.0-3 3.0 Not Available [facility] (Lab) [address], [place], [address], 09/30/2022 05:15:26 09/30/19 23 09/29/2022 CBC W/DIF F MCHC 31.4 g/dL 32.0-3 6.0 low Not Available [facility] (Lab) [address], [place], [address], 09/30/2022 05:15:26 09/30/19 23 09/29/2022 CBC W/DIF F RDW 13.2 % 11.0-1 5.0 Not Available [facility] (Lab) [address], [place], [address], 09/30/2022 05:15:26 09/30/19 23 09/29/2022 CBC W/DIF F plt 290 10'3/ uL 150-45 0 Not Available [facility] (Lab) [address], [place], [address], 09/30/2022 05:15:26 09/30/19 23 09/29/2022 CBC W/DIF F MPV 10.5 fL 9.8-12 .7 Not Available [facility] (Lab) [address], [place], [address], 09/30/2022 05:15:26 09/30/19 23 09/29/2022 CBC W/DIF F NRBC's 0.0 % 0 Not Available [facility] (Lab) [address], [place], [address], 09/30/2022 05:15:26 09/30/19 23 09/29/2022 CBC W/DIF F absolute NRBCs 0.0 10'3/ uL 0 Not Available [facility] (Lab) [address], [place], [address], 09/30/2022 05:15:26 09/30/19 23 09/29/2022 CBC W/DIF F neutrophils 52.0 % 37.0-7 2.0 Not Available [facility] (Lab) [address], [place], [address], 09/30/2022 05:15:26 09/30/19 23 09/29/2022 CBC W/DIF F lymphocytes 32.5 % 16.0-4 8.0 Not Available [facility] (Lab) [address], [place], [address], 09/30/2022 05:15:26 09/30/19 23 09/29/2022 CBC W/DIF F monocytes 10.0 % 4.0-14 .0 Not Available [facility] (Lab) [address] [place], [address], 09/30/2022 05:15:26 09/30/19 23 09/29/2022 CBC W/DIF F eosinophils 3.7 % 0.0-9. 0 Not Available [facility] (Lab) [address], [place], [address], 09/30/2022 05:15:26 09/30/19 23 09/29/2022 CBC W/DIF F basophils 1.2 % 0.0-2. 0 Not Available [facility] (Lab) [address], [place], [address], 09/30/2022 05:15:26 09/30/19 23 09/29/2022 CBC W/DIF F immature granulocytes 0.6 % no define d refere nce range Not Available [facility] (Lab) [address], [place], [address], 09/30/2022 05:15:26 09/30/19 23 09/29/2022 CBC W/DIF F absolute neutrophils 2.5 10'3/ uL 1.1-6. 0 Not Available [facility] (Lab) [address] [place], [address], 09/30/2022 05:15:26 09/30/19 23 09/29/2022 CBC W/DIF F absolute lymphocytes 1.6 10'3/ uL 0.7-3. 4 Not Available [facility] (Lab) [address] [place], [address], 09/30/2022 05:15:26 09/30/19 23 09/29/2022 CBC W/DIF F absolute monocytes 0.5 10'3/ uL 0.3-1. 0 Not Available [facility] (Lab) [address], [place], [address], 09/30/2022 05:15:26 09/30/19 23 09/29/2022 CBC W/DIF F absolute eosinophils 0.2 10'3/ uL 0.0-0. 6 Not Available [facility] (Lab) [address] [facility], [place], [address], 09/30/2022 05:15:26 09/30/19 23 09/29/2022 CBC W/DIF F absolute basophils 0.1 10'3/ uL 0.0-0. 1 Not Available [facility] (Lab) [address] [facility], [place], [address], 09/30/2022 05:15:26 09/30/19 23 09/29/2022 CBC W/DIF [...] resul ts are expec perez. Not Available [facility] (Lab) [address], [place], [address], 09/30/2022 05:15:26 09/30/19 23 09/29/2022 HEMOG LOBIN [...] >8.0% Actio n sugge sted Not Available [facility] (Lab) [address] [facility], [place], [address], 09/30/2022 05:15:27 09/30/19 23 09/29/2022 LIPID PANEL ,AMA (LDL- CALC) total cholesterol 196 mg/dL 0-199 Not Available [facility] (Lab) [address] [facility], [place], [address], 09/30/2022 05:15:27 09/30/19 23 09/29/2022 LIPID PANEL ,AMA (LDL- CALC) triglyceride s 103 mg/dL 0.00-1 50.00 NCEP Refer ence Value s for Trigl yceri tanner: Liliane l: <150 mg/dL Borde rline High: 150 - 199 mg/dL High: 200 - 499 mg/dL Very High: >/= 500 mg/dL Not Available [facility] (Lab) [address] [place], [address], 09/30/2022 05:15:27 09/30/19 23 09/29/2022 LIPID PANEL ,AMA (LDL- CALC) HDL cholesterol 80 mg/dL >40 Not Available [facility] (Lab) [address] [place], [address], 09/30/2022 05:15:27 09/30/19 23 09/29/2022 LIPID PANEL [...] mg/dL , HDL <40 mg/dL Not Available [facility] (Lab) [address] [place], [address], 09/30/2022 05:15:27 09/30/19 23 09/29/2022 LIPID PANEL ,AMA (LDL- CALC) non-HDL cholesterol 116 mg/dL no refere nce range A reaso nable goal for non-H DL yuliana stero l is one that is 30 mg/dL highe r than the LDL yuliana stero l goal. Not Available [facility] (Lab) [address] [facility], [place], [address], 09/30/2022 05:15:27 09/30/19 23 09/29/2022 LIPID PANEL ,AMA (LDL- CALC) chol/HDL ratio 2.5 . 0.0-5. 0 Not Available [facility] (Lab) [address] [facility], [place], [address], 09/30/2022 05:15:27 09/30/19 23 09/29/2022 CMP(C OMPRE HENSI VE METAB OLIC PANEL ) sodium 141 mmol/ L 133-14 6 Not Available [facility] (Lab) [address] [facility], [place], [address], 09/30/2022 05:15:28 09/30/19 23 09/29/2022 CMP(C OMPRE HENSI VE METAB OLIC PANEL ) potassium 4.6 mmol/ L 3.5-5. 1 Not Available [facility] (Lab) [address] [facility], [place], [address], 09/30/2022 05:15:28 09/30/19 23 09/29/2022 CMP(C OMPRE HENSI VE METAB OLIC PANEL ) chloride 106 mmol/ L 98-107 Not Available [facility] (Lab) [address] [facility], [place], [address], 09/30/2022 05:15:28 09/30/19 23 09/29/2022 CMP(C OMPRE HENSI VE METAB OLIC PANEL ) carbon dioxide 27 mmol/ L 21-31 Not Available [facility] (Lab) [address] [place], [address], 09/30/2022 05:15:28 09/30/19 23 09/29/2022 CMP(C OMPRE HENSI VE METAB OLIC PANEL ) anion gap 8 mmol/ L 4-13 Not Available [facility] (Lab) [address] [facility], [place], [address], 09/30/2022 05:15:28 09/30/19 23 09/29/2022 CMP(C OMPRE HENSI VE METAB OLIC PANEL ) blood urea nitrogen 16 mg/dL 7-[address] [facility] (Lab) [address] [facility], [place], [address], 09/30/2022 05:15:28 09/30/19 23 09/29/2022 CMP(C OMPRE HENSI VE METAB OLIC PANEL ) creatinine 0.61 mg/dL 0.60-1 .30 Not Available [facility] (Lab) [address] [facility], [place], [address], 09/30/2022 05:15:28 09/30/19 23 09/29/2022 CMP(C OMPRE HENSI VE METAB OLIC PANEL ) egfrcr (CKD-epi 2020) >90 mL/mi n/1.7 3_m2 >=60 Not Available [facility] (Lab) [address] [facility], [place], [address], 09/30/2022 05:15:28 09/30/19 23 09/29/2022 CMP(C OMPRE HENSI VE METAB OLIC PANEL ) calcium 9.5 mg/dL 8.3-10 .5 Not Available [facility] (Lab) [address] [place], [address], 09/30/2022 05:15:28 09/30/19 23 09/29/2022 CMP(C OMPRE HENSI VE METAB OLIC PANEL ) glucose 105 mg/dL 70-100 high Not Available [facility] (Lab) [address] [place], [address], 09/30/2022 05:15:28 09/30/19 23 09/29/2022 CMP(C OMPRE HENSI VE METAB OLIC PANEL ) protein, total 6.6 g/dL 6.4-8. 3 Not Available [facility] (Lab) [address] [facility], [place], [address], 09/30/2022 05:15:28 09/30/19 23 09/29/2022 CMP(C OMPRE HENSI VE METAB OLIC PANEL ) albumin 4.2 g/dL 3.5-5. 0 Not Available [facility] (Lab) [address] [facility], [place], [address], 09/30/2022 05:15:28 09/30/19 23 09/29/2022 CMP(C OMPRE HENSI VE METAB OLIC PANEL ) ALT 31 units /L 9-43 Not Available [facility] (Lab) [address] [facility], [place], [address], 09/30/2022 05:15:28 09/30/19 23 09/29/2022 CMP(C OMPRE HENSI VE METAB OLIC PANEL ) alkaline phosphatase 63 units /L 34-104 Not Available [facility] (Lab) [address] [facility], [place], [address], 09/30/2022 05:15:28 09/30/19 23 09/29/2022 CMP(C OMPRE HENSI VE METAB OLIC PANEL ) AST 21 units /L 13-39 Not Available [facility] (Lab) [address] [facility], [place], [address], 09/30/2022 05:15:28 09/30/19 23 09/29/2022 CMP(C OMPRE HENSI VE METAB OLIC PANEL ) bilirubin, total 1.0 mg/dL 0.2-1. 2 Not Available [facility] (Lab) [address] [facility], [place], [address], 09/30/2022 05:15:28 09/30/19 23 09/29/2022 TSH, REFLE X FREE T4 TSH 1.53 uIU/m L 0.30-5 .33 Not Available [facility] (Lab) [address] [facility], [place], [address], 09/30/2022 05:15:28 09/30/19 23 09/29/2022 VITAM IN D, 25-OH (TOTA L D2/D3 ) vitamin D, 25-hydroxy, total 54.3 NG/mL 30.0-1 00.0 Sugge stive of Defic iency : <20 ng/mL Sugge stive of Insuf ficie ncy: 20-29 ng/mL Sugge stive of Suffi cienc y: 30-10 0 ng/mL Sugge stive of Toxic ity: >150 ng/mL Not Available [facility] (Lab) [address] [facility], [place], [address], 09/30/2022 05:15:29 Result Notes None recorded. Procedures Surgical History Date Name Laterality Status Provider Name and Address Organization Details Recorded Time Tubal Ligation completed [facility] 09/28/2022 11:36:03 liposuction of subcutaneous tissue completed [facility] 09/28/2022 11:36:45 Imaging Results None recorded. [...] Updated DateTime 10/09/2022 172.72 cm 33.5 kg/m2 29291.32 g 140 mm[Hg] 90 mm[Hg] [facility] 3 09:44:49 Date Recorded Body height Body mass index (BMI) Body weight Systolic blood pressure Diastolic blood pressure Systolic blood pressure Diastolic blood pressure Provider Name and Address Organization Details Last Updated DateTime 3 172.72 cm 34.1 kg/m2 373546. 69 g 176 mm[Hg] 103 mm[Hg] 180 mm[Hg] 120 mm[Hg] [facility] 3 16:21:03 Date Recorded Body height Body mass index (BMI) Body weight Systolic blood pressure Diastolic blood pressure Systolic blood pressure Diastolic blood pressure Provider Name and Address Organization Details Last Updated DateTime 3 172.72 cm 32.7 kg/m2 73599.3 6 g 152 mm[Hg] 93 mm[Hg] 164 mm[Hg] 92 mm[Hg] [facility] 3 10:12:12 Date Recorded Body height Body mass index (BMI) Body weight Systolic blood pressure Diastolic blood pressure Provider Name and Address Organization Details Last Updated DateTime 01/24/2023 172.72 cm 32.2 kg/m2 87602.86 g 137 mm[Hg] 93 mm[Hg] [facility] 09:53:57 Date Recorded Body height Body mass index (BMI) Body weight Systolic blood pressure Diastolic blood pressure Provider Name and Address Organization Details Last Updated DateTime 03/04/2023 172.72 cm 31.8 kg/m2 52272.88 g 158 mm[Hg] 102 mm[Hg] Hanna Wheeler [facility] 11:25:19 Social History None recorded. Functional [...] SNOMED-CT Code Diagnosis ICD10 Code Diagnosis Note [id number] Alfredo Blanchard MD [facility] [address] [address] 09/28/2022 11:03:28 09/30/2022 14:04:34 Obesity 898540309 E66.9 This patient is a 72-year-ol d [...] done, basil metabolic great will be completed. [id number] Alfredo Blanchard MD [facility] [address] [address] 10/09/2022 09:31:29 10/12/2022 12:57:14 Prediabetes 441767159 R73.03 This patient is a 72-year-ol d [...] Her metabolism is 128% of expected. Obesity 807176327 E66.9 [id number] Alfredo Blanchard MD [facility] [address],[place] [address] 11/10/2022 15:53:39 11/11/2022 10:55:50 Prediabetes 538474093 R73.03 72 year female who presents for follow-up on obesity. She has been unable to get GLP 1 agonist. We agreed Contrave. She will obtain Contrave from our office. We talked about side effects, dosing. we will also try to get Victoza. We spent over 20 minutes face-to-fa ce. More than 50% was counseling . Obesity 893650470 E66.9 [id number] Alfredo Blanchard MD [facility] [address],[place] [address] 12/25/2022 10:05:41 12/27/2022 12:05:49 Obesity 297345518 E66.9 This patient is a 72-year-ol d [...] continue to refine her diet and exercise [id number] Alfredo Blanchard MD [facility] [address],[place] [address] 01/24/2023 09:44:06 01/26/2023 10:27:19 Obesity 078853279 E66.9 This patient is a 72-year-ol d [...] ce. More than 50% was counseling . [id number] [facility] [address] [address] 03/04/2023 10:52:48 03/04/2023 15:32:33 Obesity 819568027 E66.9 she is doing well and has made significan t positive diet and exercise changesshe is going to continue meeting with the web methods developer. We discussed portion sizes, protein, meal prepping, [...] Guarantor Name 10/09/2022 2 FOR LIFE () [id number] Natasha P Orzulak [id number] Natasha P Orzulak 10/09/2022 1 [place] Natasha P Orzulak [id number] Natasha P Orzulak 11/10/2022 2 FOR LIFE () [id number] Natasha P Orzulak [id number] Natasha P Orzulak 11/10/2022 1 [place] Natasha P Orzulak [id number] Natasha P Orzulak 12/25/2022 2 FOR LIFE () [id number] Natasha P Orzulak [id number] Natasha P Orzulak 12/25/2022 1 [place] Natasha P Orzulak [id number] Natasha P Orzulak 01/24/2023 2 FOR LIFE () [id number] Natasha P Orzulak [id number] Natasha P Orzulak 01/24/2023 1 [place] Natasha P Orzulak [id number] Natasha P Orzulak 03/04/2023 2 FOR LIFE () [id number] Natasha P Orzulak [id number] Natasha P Orzulak 03/04/2023 1 [place] Natasha P Orzulak [id number] Natasha P Orzulak Notes Date Note Type Note Provider Name and Address Organization Details Recorded Time 3 text/html This patient is a 72-year-old female presents for follow-up on weight management. We spent 20 minutes [id number]. More than 50% was counseling. Talked about [...] expected. Alfredo Blanchard MD [address], [place], [address], [place] [facility] 10/09/2022 10:18:44 3 text/html 72 year female who presents for follow-up on obesity. She has been unable to get GLP 1 agonist. We agreed Contrave. She will obtain Contrave from our office. We talked about side effects, dosing. we will also try to get Victoza. We spent over 20 minutes dbsf-dd-[id number]. More than 50% was counseling. Alfredo Blanchard MD [address], [place], [address], [facility] 11/10/2022 22:51:23 3 text/html This patient [...] exercise Alfredo Blanchard MD [address], [place], [address], [facility] 12/25/2022 10:53:34 3 text/html This patient [...] diet and exercise. We spent 20 minutes [id number]-tbds. More than 50% was counseling. Alfredo Blanchard MD [address], [place], [address], [facility] 01/25/2023 16:08:29 3 text/html 72yopresents for weight management follow-upshe is currently on contrave managed by Dr. Evette allison since starting contrave, denies any negative SEless cravings, eating smaller portion sizesshe is meeting with the web methods developer and doing well. has made positive changesexercising 2-3 times per week, cardio and light weights [facility] [address], [place], [address], [facility] 03/04/2023 14:32:11 OBGyn Episode No OBEpisode recorded.
== END 2024-11-14 13:27 | disposition home or self-care (01) ==
LOC: ANHASCIMG 13:28
PROVIDERS: PCP Internal Medicine; Visit Provider Clinical Nurse Specialist
DX: M51.379 Other intervertebral disc degeneration, lumbosacral region without mention of lumbar back pain or lower extremity pain (principal); M51.369 Other intervertebral disc degeneration, lumbar region without mention of lumbar back pain or lower extremity pain
CPT/HCPCS: 72100

== ENCOUNTER 2024-12-17 10:25 | Outpatient (CLI) | payer MEDICARE, OTHER, SELFPAY ==
--- NOTE | ~2024-12-17 | MR_ITS ---
MRI of the lumbar spine Clinical History: Radiculopathy Technique: Axial T2-weighted images, and sagittal T1-weighted, T2-weighted, and T2 fat-sat images wer e acquired. Findings: There is no fracture the lumbar spine. There is 6 mm anterolisthesis of L4 over L5. No bone marrow signal abnormality seen. At L1-L2 and L2-L3, there is no disc bulge or herniation. There is mild facet hypertrophy. No spinal canal stenosis or neural foraminal narrowing at these levels. At L3-L4, there is minimal disc bulge with tiny annular fissure. There is moderate to advanced facet arthropathy. No central canal stenosis or neural foraminal narrowing. At L4-L5, there is degenerative disc narrowing with diffuse disc bulge and superimposed central disc protrusion. Severe facet arthropathy is also present, which also contributes to severe spinal canal s tenosis/thecal sac compression. There is mild left neural foraminal narrowing, and mild to moderate r ight neural foraminal narrowing. At L5-S1, there is minimal disc bulge with moderate facet arthropathy. No central canal stenosis or n eural foraminal narrowing. Paravertebral soft tissues are unremarkable. Impression: Severe degenerative spondylosis at L4-L5 with associated 6 mm anterolisthesis at this level. Mild degenerative changes in the remainder of the lumbar spine, as above. Reviewed, dictated and finalized at [facility]. Impression: Severe degenerative spondylosis at L4-L5 with associated 6 mm anterolisthesis a t this level. Mild degenerative changes in the remainder of the lumbar spine, as above.
--- OUTSIDE RECORDS SUMMARY | 2024-12-17 11:23 | XMS_ITS | Referral Summary ---
Author Organization [facility] [address] Address [address] [place] [address] Care Team Providers Care Direct Support Professional Name Role Phone Mason Herrera DO Primary Care Provider [phone] Allergies No known active allergies Medications atorvastatin (LIPITOR) 20 mg tablet 08/11/2022 Active Active Problems No known active problems Social History Tobacco Use Types Packs/Day Years Used Date Smoking Tobacco: Never Assessed Comments Unknown Sex and Gender Information Value Date Recorded Sex Assigned at Not on file Legal Sex Female 9:15 PM [employer]IEF [employer] Gender Identity Not on file Sexual Orientation [...] 11:37 AM CDT Height 175.3 cm (5' 9) 10/07/2022 11:37 AM CDT Body Mass Index 31.01 10/07/2022 11:37 AM CDT Plan of Treatment Not on file Insurance MEDICARE FOR LIFE Care Teams Direct Support Professional Relationship Specialty Start Date End Date Mason Herrera DO PCP - General Internal Medicine 10/07/22
--- OUTSIDE RECORDS SUMMARY | 2024-12-17 11:23 | XMS_ITS | Clinical Summary ---
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
--- OUTSIDE RECORDS SUMMARY | 2024-12-17 11:23 | XMS_ITS | Continuity of Care Document ---
Author Organization [facility] Address [address] [place] [address] Phone Care Team Providers Care Senior Tax Manager Name Role Phone Hossein Santacruz MD Unavailable [...] Diagnoses Date Provider Providers Copied on Encounter [facility], [address] [place] [address] [address], [place], [place], [id number], tel:[phone] SEC [place] Professional 1 month s/p TORIC IOL w/LensAR (chief complaint) Post op visit 1 Noam Catalan. [address], [address], [place], [place], [address], [place]. tel:[phone] Referring Provider: Brooke Durham OD, [address] [place] [address], [address]. tel:[phone] [facility], [address] [place] [address] [address], [place], [place], [id number], tel:[phone] SEC Foreign [place] Professional 1 week s/p TORIC IOL w/LensAR (chief complaint) Post op visit 1 Noam Catalan. [address], [address], [place], [place], [address], [place]. tel:[phone] Referring Provider: Brooke Durham OD, [address] [place] [address], [address]. tel:[phone] [facility], [address] [place] [address] [address], [place], [place], [address], tel:[phone] SEC Foreign [place] Professional 1 day po Toric PCIOL OS (02/11/21) (chief complaint) Post op visit 1 Noam Catalan. [address], [place], [place], [address], . tel:[phone] Referring Provider: Brooke Durham OD, [address] [place] [address], [address]. tel:[phone] [facility], [address], [place], [place], [address], [place] [phone] [facility] No Information 1 Noam Catalan. [address], [place], [address], . tel:[phone] Referring Provider: Brooke Durham OD, [address] [place] [address], [address]. tel:[phone] [facility], [address], [place], [place], [address], [place] tel:[phone] SEC Foreign [place] Professional No Information 1 Noam Catalan. [address], [place], [address], . tel:[phone] Referring Provider: Brooke Durham OD, [address] [place] [address], [address]. tel:[phone] [facility], [address] [place] [address] [address], [place], [place], [address], [place] tel:[phone] SEC Foreign [place] Professional No Information 1 Noam Catalan. [address], [place], [address], . tel:[phone] [facility], [address], [place], [place], [address], [place] tel:[phone] SEC Foreign [place] Professional 2 wk po PCIOL OD (01/14/21) (chief complaint) Post op visit 1 Noam Catalan. [address], [place], [address], . tel:[phone] Referring Provider: Brooke Durham OD, [address] [place] [address], [address]. tel:[phone] [facility], [address], [place], [place], [address], [place] tel:[phone] SEC Foreign [place] Professional Post-Op (chief complaint) Post op visit 1 Noam Catalan. [address], [place], [address], [place]. tel:[phone] Referring Provider: Brooke Druham OD, [address] [place] [address], [address]. tel:[phone] [facility], [address], [place], [place], [address], [place] tel:[phone] [facility] No Information 1 Noam Catalan. [address], [place], [address], [place]. tel:[phone] Referring Provider: Brooke Herminio OD, [address] [place] [address], [address]. tel:[phone] [facility], [address], [place], [place], [address], [place] tel:[phone] SEC Foreign [place] Professional No Information 1 Noam Catalan. [address] [facility], [address] [place], [address], [place]. tel:[phone] Referring Provider: Brooke Dunellen OD, [address] [place] [address], [address]. tel:[phone] [facility], [address], [place], [place], [address], [place] tel:[phone] SEC Tristan Garcia No Information 1 Noam Catalan. [address] [address], [place], [address], [place]. tel:[phone] [facility], [address], [place], [place], [address], [place] [phone] SEC Ara Jade SALLY No Information 1 Noam Catalan. [address], [place], [place], [address], [place]. tel:[phone] Office/outpa tient Visit, [facility], [address], [place], [place], [address], [place] tel:[phone] SEC Foreign [place] Professional Cataract evaluation (chief complaint) Anatomical narrow angle of both eyesAge-relat ed nuclear cataract, bilateralEpir etinal membrane (ERM) of right eye 1 Noam Catalan. [address], [place], [place], [address], [place]. tel:[phone] Referring Provider: Brooke Durham OD, [address] [place] [address] [place], [address]. tel:[phone] [facility], [address], [place], [place], [address], [place] [phone] SEC Christoval [place] Professional No Information 1 Noam Catalan. [address], [place], [place], [address], [place]. tel:[phone] Referring Provider: Brooke Durham OD, [address] [place] [address] [place], [address]. tel:[phone] Family History Family Member Type Diagnosis Age [...]
--- OUTSIDE RECORDS SUMMARY | 2024-12-17 11:23 | XMS_ITS | Data Portability ---
Author Organization [facility] [place] Address [address] [place] [address] Care Team Providers Care Photographic Restorer Name Role Phone MITZIJA COLLAZO Primary Care Provider Assessment No assessment recorded. Plan of Treatment Reminders Order Date Submit Date Provider Last Modified By Organization Details Last Modified Time Details Appointments None recorded. Lab None recorded. Referral None recorded. Procedures None recorded. Surgeries None recorded. Imaging None recorded. Medication Orders Victoza 3-Jeff 0.6 mg/0.1 mL (18 mg/3 mL) subcutaneou s pen injector 2022 023 [id number], [address], [place], [id number], 3 10:12:23 Mounjaro 2.5 mg/0.5 mL subcutaneou s pen injector 2022 023 [facility], [address] [place] [address], [address], 3 10:12:17 Patient TargetsNo targets recorded. Patient InstructionsNo instructions recorded. Reason for Referral None Reported. Results Created Date Observation Date Name Description Value Unit Range Abnormal Flag Note LastModifiedBy Organization Detail LastModifiedTime 09/30/1909/29/2022 CBC W/DIF F WBC 4.9 10'3/ uL 3.6-10 .2 Not Available [facility] (Lab) [address], [place], [address], 09/30/2022 05:15:26 09/30/19 23 09/29/2022 CBC W/DIF F RBC 4.73 10'6/ uL (based on docume nted legal sex) 4.10-5 .30 Not Available [facility] (Lab) [address], [place], [address], 09/30/2022 05:15:26 09/30/19 23 09/29/2022 CBC W/DIF F HGB 13.7 g/dL (based on docume nted legal sex) 11.9-1 5.8 Not Available [facility] (Lab) [address], [place], [address], 09/30/2022 05:15:26 09/30/19 23 09/29/2022 CBC W/DIF F HCT 43.6 % (based on docume nted legal sex) 37.4-4 8.3 Not Available [facility] (Lab) [address], [place], [address], 09/30/2022 05:15:26 09/30/19 23 09/29/2022 CBC W/DIF F MCV 92.2 fL 82.0-9 9.0 Not Available [facility] (Lab) [address], [place], [address], 09/30/2022 05:15:26 09/30/19 23 09/29/2022 CBC W/DIF F MCH 29.0 pg 27.0-3 3.0 Not Available [facility] (Lab) [address], [place], [address], 09/30/2022 05:15:26 09/30/19 23 09/29/2022 CBC W/DIF F MCHC 31.4 g/dL 32.0-3 6.0 low Not Available [facility] (Lab) [address], [place], [address], 09/30/2022 05:15:26 09/30/19 23 09/29/2022 CBC W/DIF F RDW 13.2 % 11.0-1 5.0 Not Available [facility] (Lab) [address], [place], [address], 09/30/2022 05:15:26 09/30/19 23 09/29/2022 CBC W/DIF F plt 290 10'3/ uL 150-45 0 Not Available [facility] (Lab) [address], [place], [address], 09/30/2022 05:15:26 09/30/19 23 09/29/2022 CBC W/DIF F MPV 10.5 fL 9.8-12 .7 Not Available [facility] (Lab) [address], [place], [address], 09/30/2022 05:15:26 09/30/19 23 09/29/2022 CBC W/DIF F NRBC's 0.0 % 0 Not Available [facility] (Lab) [address], [place], [address], 09/30/2022 05:15:26 09/30/19 23 09/29/2022 CBC W/DIF F absolute NRBCs 0.0 10'3/ uL 0 Not Available [facility] (Lab) [address], [place], [address], 09/30/2022 05:15:26 09/30/19 23 09/29/2022 CBC W/DIF F neutrophils 52.0 % 37.0-7 2.0 Not Available [facility] (Lab) [address], [place], [address], 09/30/2022 05:15:26 09/30/19 23 09/29/2022 CBC W/DIF F lymphocytes 32.5 % 16.0-4 8.0 Not Available [facility] (Lab) [address], [place], [address], 09/30/2022 05:15:26 09/30/19 23 09/29/2022 CBC W/DIF F monocytes 10.0 % 4.0-14 .0 Not Available [facility] (Lab) [address] [place], [address], 09/30/2022 05:15:26 09/30/19 23 09/29/2022 CBC W/DIF F eosinophils 3.7 % 0.0-9. 0 Not Available [facility] (Lab) [address], [place], [address], 09/30/2022 05:15:26 09/30/19 23 09/29/2022 CBC W/DIF F basophils 1.2 % 0.0-2. 0 Not Available [facility] (Lab) [address], [place], [address], 09/30/2022 05:15:26 09/30/19 23 09/29/2022 CBC W/DIF F immature granulocytes 0.6 % no define d refere nce range Not Available [facility] (Lab) [address], [place], [address], 09/30/2022 05:15:26 09/30/19 23 09/29/2022 CBC W/DIF F absolute neutrophils 2.5 10'3/ uL 1.1-6. 0 Not Available [facility] (Lab) [address] [place], [address], 09/30/2022 05:15:26 09/30/19 23 09/29/2022 CBC W/DIF F absolute lymphocytes 1.6 10'3/ uL 0.7-3. 4 Not Available [facility] (Lab) [address] [place], [address], 09/30/2022 05:15:26 09/30/19 23 09/29/2022 CBC W/DIF F absolute monocytes 0.5 10'3/ uL 0.3-1. 0 Not Available [facility] (Lab) [address], [place], [address], 09/30/2022 05:15:26 09/30/19 23 09/29/2022 CBC W/DIF F absolute eosinophils 0.2 10'3/ uL 0.0-0. 6 Not Available [facility] (Lab) [address] [facility], [place], [address], 09/30/2022 05:15:26 09/30/19 23 09/29/2022 CBC W/DIF F absolute basophils 0.1 10'3/ uL 0.0-0. 1 Not Available [facility] (Lab) [address] [facility], [place], [address], 09/30/2022 05:15:26 09/30/19 23 09/29/2022 CBC W/DIF [...] resul ts are expec perez. Not Available [facility] (Lab) [address], [place], [address], 09/30/2022 05:15:26 09/30/19 23 09/29/2022 HEMOG LOBIN [...] >8.0% Actio n sugge sted Not Available [facility] (Lab) [address] [facility], [place], [address], 09/30/2022 05:15:27 09/30/19 23 09/29/2022 LIPID PANEL ,AMA (LDL- CALC) total cholesterol 196 mg/dL 0-199 Not Available [facility] (Lab) [address] [facility], [place], [address], 09/30/2022 05:15:27 09/30/19 23 09/29/2022 LIPID PANEL ,AMA (LDL- CALC) triglyceride s 103 mg/dL 0.00-1 50.00 NCEP Refer ence Value s for Trigl yceri tanner: Liliane l: <150 mg/dL Borde rline High: 150 - 199 mg/dL High: 200 - 499 mg/dL Very High: >/= 500 mg/dL Not Available [facility] (Lab) [address] [place], [address], 09/30/2022 05:15:27 09/30/19 23 09/29/2022 LIPID PANEL ,AMA (LDL- CALC) HDL cholesterol 80 mg/dL >40 Not Available [facility] (Lab) [address] [place], [address], 09/30/2022 05:15:27 09/30/19 23 09/29/2022 LIPID PANEL [...] mg/dL , HDL <40 mg/dL Not Available [facility] (Lab) [address] [place], [address], 09/30/2022 05:15:27 09/30/19 23 09/29/2022 LIPID PANEL ,AMA (LDL- CALC) non-HDL cholesterol 116 mg/dL no refere nce range A reaso nable goal for non-H DL yuliana stero l is one that is 30 mg/dL highe r than the LDL yuliana stero l goal. Not Available [facility] (Lab) [address] [facility], [place], [address], 09/30/2022 05:15:27 09/30/19 23 09/29/2022 LIPID PANEL ,AMA (LDL- CALC) chol/HDL ratio 2.5 . 0.0-5. 0 Not Available [facility] (Lab) [address] [facility], [place], [address], 09/30/2022 05:15:27 09/30/19 23 09/29/2022 CMP(C OMPRE HENSI VE METAB OLIC PANEL ) sodium 141 mmol/ L 133-14 6 Not Available [facility] (Lab) [address] [facility], [place], [address], 09/30/2022 05:15:28 09/30/19 23 09/29/2022 CMP(C OMPRE HENSI VE METAB OLIC PANEL ) potassium 4.6 mmol/ L 3.5-5. 1 Not Available [facility] (Lab) [address] [facility], [place], [address], 09/30/2022 05:15:28 09/30/19 23 09/29/2022 CMP(C OMPRE HENSI VE METAB OLIC PANEL ) chloride 106 mmol/ L 98-107 Not Available [facility] (Lab) [address] [facility], [place], [address], 09/30/2022 05:15:28 09/30/19 23 09/29/2022 CMP(C OMPRE HENSI VE METAB OLIC PANEL ) carbon dioxide 27 mmol/ L 21-31 Not Available [facility] (Lab) [address] [place], [address], 09/30/2022 05:15:28 09/30/19 23 09/29/2022 CMP(C OMPRE HENSI VE METAB OLIC PANEL ) anion gap 8 mmol/ L 4-13 Not Available [facility] (Lab) [address] [facility], [place], [address], 09/30/2022 05:15:28 09/30/19 23 09/29/2022 CMP(C OMPRE HENSI VE METAB OLIC PANEL ) blood urea nitrogen 16 mg/dL 7-25 Not Available [facility] (Lab) [address] [facility], [place], [address], 09/30/2022 05:15:28 09/30/19 23 09/29/2022 CMP(C OMPRE HENSI VE METAB OLIC PANEL ) creatinine 0.61 mg/dL 0.60-1 .30 Not Available [facility] (Lab) [address] [facility], [place], [address], 09/30/2022 05:15:28 09/30/19 23 09/29/2022 CMP(C OMPRE HENSI VE METAB OLIC PANEL ) egfrcr (CKD-epi 2020) >90 mL/mi n/1.7 3_m2 >=60 Not Available [facility] (Lab) [address] [facility], [place], [address], 09/30/2022 05:15:28 09/30/19 23 09/29/2022 CMP(C OMPRE HENSI VE METAB OLIC PANEL ) calcium 9.5 mg/dL 8.3-10 .5 Not Available [facility] (Lab) [address] [place], [address], 09/30/2022 05:15:28 09/30/19 23 09/29/2022 CMP(C OMPRE HENSI VE METAB OLIC PANEL ) glucose 105 mg/dL 70-100 high Not Available [facility] (Lab) [address] [place], [address], 09/30/2022 05:15:28 09/30/19 23 09/29/2022 CMP(C OMPRE HENSI VE METAB OLIC PANEL ) protein, total 6.6 g/dL 6.4-8. 3 Not Available [facility] (Lab) [address] [facility], [place], [address], 09/30/2022 05:15:28 09/30/19 23 09/29/2022 CMP(C OMPRE HENSI VE METAB OLIC PANEL ) albumin 4.2 g/dL 3.5-5. 0 Not Available [facility] ([facility]) [address] [facility], [place], [address], 09/30/2022 05:15:28 09/30/19 23 09/29/2022 CMP(C OMPRE HENSI VE METAB OLIC PANEL ) ALT 31 units /L 9-43 Not Available [facility] (Lab) [address] [facility], [place], [address], 09/30/2022 05:15:28 09/30/19 23 09/29/2022 CMP(C OMPRE HENSI VE METAB OLIC PANEL ) alkaline phosphatase 63 units /L 34-104 Not Available [facility] (Lab) [address] [facility], [place], [address], 09/30/2022 05:15:28 09/30/19 23 09/29/2022 CMP(C OMPRE HENSI VE METAB OLIC PANEL ) AST 21 units /L 13-39 Not Available [facility] (Lab) [address] [facility], [place], [address], 09/30/2022 05:15:28 09/30/19 23 09/29/2022 CMP(C OMPRE HENSI VE METAB OLIC PANEL ) bilirubin, total 1.0 mg/dL 0.2-1. 2 Not Available [facility] (Lab) [address] [facility], [place], [address], 09/30/2022 05:15:28 09/30/19 23 09/29/2022 TSH, REFLE X FREE T4 TSH 1.53 uIU/m L 0.30-5 .33 Not Available [facility] (Lab) [address] [facility], [place], [address], 09/30/2022 05:15:28 09/30/19 23 09/29/2022 VITAM IN D, 25-OH (TOTA L D2/D3 ) vitamin D, 25-hydroxy, total 54.3 NG/mL 30.0-1 00.[address]ive of Defic iency : <20 ng/mL Sugge stive of Insuf ficie ncy: 20-29 ng/mL Sugge stive of Suffi cienc y: 30-10 0 ng/mL Sugge stive of Toxic ity: >150 ng/mL Not Available [facility] (Lab) [address] [facility], [place], [address], 09/30/2022 05:15:29 Result Notes None recorded. Procedures Surgical History Date Name Laterality Status Provider Name and Address Organization Details Recorded Time Tubal Ligation completed [facility] 09/28/2022 11:36:03 liposuction of subcutaneous tissue completed [facility] 09/28/2022 11:36:45 Imaging Results None recorded. [...] Updated DateTime 10/09/2022 172.72 cm 33.5 kg/m2 86906.32 g 140 mm[Hg] 90 mm[Hg] [facility] 3 09:44:49 Date Recorded Body height Body mass index (BMI) Body weight Systolic blood pressure Diastolic blood pressure Systolic blood pressure Diastolic blood pressure Provider Name and Address Organization Details Last Updated DateTime 3 172.72 cm 34.1 kg/m2 358684. 69 g 176 mm[Hg] 103 mm[Hg] 180 mm[Hg] 120 mm[Hg] [facility] 3 16:21:03 Date Recorded Body height Body mass index (BMI) Body weight Systolic blood pressure Diastolic blood pressure Systolic blood pressure Diastolic blood pressure Provider Name and Address Organization Details Last Updated DateTime 3 172.72 cm 32.7 kg/m2 87923.3 6 g 152 mm[Hg] 93 mm[Hg] 164 mm[Hg] 92 mm[Hg] [facility] 3 10:12:12 Date Recorded Body height Body mass index (BMI) Body weight Systolic blood pressure Diastolic blood pressure Provider Name and Address Organization Details Last Updated DateTime 01/24/2023 172.72 cm 32.2 kg/m2 76875.86 g 137 mm[Hg] 93 mm[Hg] [facility] 09:53:57 Date Recorded Body height Body mass index (BMI) Body weight Systolic blood pressure Diastolic blood pressure Provider Name and Address Organization Details Last Updated DateTime 03/04/2023 172.72 cm 31.8 kg/m2 11737.88 g 158 mm[Hg] 102 mm[Hg] Hanna Wheeler [facility] 11:25:19 Social History None recorded. [...] SNOMED-CT Code Diagnosis ICD10 Code Diagnosis Note [id number] Alfredo Blanchard MD [place] [address] [address] 09/28/2022 11:03:28 09/30/2022 14:04:34 Obesity 621450216 E66.9 This patient is a 72-year-ol d [...] done, basil metabolic great will be completed. [id number] Alfredo Blanchard MD [place] [address] [address] 10/09/2022 09:31:29 10/12/2022 12:57:14 Prediabetes 119938716 R73.03 This patient is a 72-year-ol d [...] Her metabolism is 128% of expected. Obesity 011988312 E66.9 [id number] Alfredo Blanchard MD [place] [address],[place] [address] 11/10/2022 15:53:39 11/11/2022 10:55:50 Prediabetes 687835937 R73.03 72 year female who presents for follow-up on obesity. She has been unable to get GLP 1 agonist. We agreed Contrave. She will obtain Contrave from our office. We talked about side effects, dosing. we will also try to get Victoza. We spent over 20 minutes face-to-fa ce. More than 50% was counseling . Obesity 755617968 E66.9 [id number] Alfredo Blanchard MD [place] [address],[place] [address] 12/25/2022 10:05:41 12/27/2022 12:05:49 Obesity 259597695 E66.9 This patient is a 72-year-ol d [...] continue to refine her diet and exercise [id number] Alfredo Blanchard MD [place] [address],[place] [address] 01/24/2023 09:44:06 01/26/2023 10:27:19 Obesity 140449467 E66.9 This patient is a 72-year-ol d [...] ce. More than 50% was counseling . [id number] [facility] [place] [address] [address] 03/04/2023 10:52:48 03/04/2023 15:32:33 Obesity 919850460 E66.9 she is doing well and has made significan t positive diet and exercise changesshe is going to continue meeting with the rate inserter. We discussed portion sizes, protein, meal prepping, [...] Recorded Advance Directives Directive None Recorded Payers Insurance Date Sequence Insurance Name Policy Number Policy Jimenez Covered Member ID Jimenez Member ID Guarantor Name 12/06/2022 2 UNSPECIFIED REMIT PAYOR Natasha Salas 03/04/2023 2 FOR LIFE () [id number] Natasha Salas [id number] Natasha Salas 03/04/2023 1 [place] Natasha Salas [id number] Natasha Salas Notes Date Note Type Note Provider Name and Address Organization Details Recorded Time 3 text/html This patient is a 72-year-old female presents for follow-up on weight management. We spent 20 minutes albz-gu-urqe. More than 50% was counseling. Talked about [...] expected. Alfredo Blanchard MD [address], [place], [address], [facility] 10/09/2022 10:18:44 3 text/html 72 year female who presents for follow-up on obesity. She has been unable to get GLP 1 agonist. We agreed Contrave. She will obtain Contrave from our office. We talked about side effects, dosing. we will also try to get Victoza. We spent over 20 minutes omtx-me-grnq. More than 50% was counseling. Alfredo Blanchard MD [address], [place], [address], [facility] 11/10/2022 22:51:23 3 text/html [...] exercise Alfredo Blanchard MD [address], [place], [address], [facility] 12/25/2022 10:53:34 3 text/html [...] diet and exercise. We spent 20 minutes avgp-sv-lkil. More than 50% was counseling. Alfredo Blanchard MD [address], [place], [address], [facility] 01/25/2023 16:08:29 3 text/html 72yopresents for weight management follow-upshe is currently on contrave managed by Dr. Averying well since starting contrave, denies any negative SEless cravings, eating smaller portion sizesshe is meeting with the rate inserter and doing well. has made positive changesexercising 2-3 times per week, cardio and light weights [facility] [address], [place], [address], [facility] 03/04/2023 14:32:11 OBGyn Episode No OBEpisode recorded.
== END 2024-12-17 10:26 | disposition home or self-care (01) ==
PROVIDERS: PCP Internal Medicine; Visit Provider Clinical Nurse Specialist
DX: M51.369 Other intervertebral disc degeneration, lumbar region without mention of lumbar back pain or lower extremity pain (principal); M47.26 Other spondylosis with radiculopathy, lumbar region
CPT/HCPCS: 72148

== ENCOUNTER 2025-01-15 08:00 | Outpatient (RCR) | payer MEDICARE, OTHER, SELFPAY ==
--- NOTE | 2024-12-07 09:44 | PTOPEVAL1 ---
Assessment and note entered by Jaja Espinoza, PT Evaluation Information Assessment Status Evaluation Diagnosis lumbar radiculopathy ICD-10 Condition Codes (PT) Radiculopathy, lumbar region M54.16 Onset September 2024 Subjective Information Pt reports having a tendon repair on her L ankle 10 years ago and she was NWB for 3 months. She thinks this knocked her out of alignment because the kneeler she was using was not at the right height. 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 She went to a chiro 6 years ago and it fixed the pain down her R leg. She is now complaining of the pain in her back and down her R leg posteriorly and into her toes. She reports increased numbness and tingling with prolonged walking and standing. She has been able to tolerate working around her home and shopping with a compression back brace. She has had an injection and steroid pack with minimal relief. Reported Pain Level Pain Score 2: Self Report Additional Pain Score Comments starts in the R glute, travels along L5 distribution, numbness and tingling, sharp/ shooting worse with forward bending, heavy lifting, prolonged walking/standing Assessment PT Clinical Summary Pt is a 74 year old female who presents to physical therapy with a primary complaint of R sided radicular pain worsening since september 2024. Pt demonstrates core and hip weakness, peripheralization of pain with repeated flexion, decreased lumbar mobility, and abnormal posture that limit their ability to perform ADLs. Pt will benefit from skilled physical therapy to address the above listed deficits and return to PLOF. HEP instructed and written handout provided, EX tolerated well with no adverse effects to note post-session. Pt was educated on importance of adherence to HEP. Pt was also educated on anatomy, prognosis, home modalities, centralization versus peripheralization, and PT POC. Plan of Care Interventions Electrical Stimulation,Gait Training,Hot Pack/Cold Pack,Manual Therapy,Mechanical Traction,Neuro Re- education,Patient/Caregiver Education,Therapeutic Activities,Therapeutic Exercise PT Services Indicated Yes Treatment Frequency and 2x/wk for 10 visits Duration These treatments will address the objective and functional deficits as defined above. The patient will be advanced safely and appropriately in order for the patient to progress towards his/her prior level of function. Additional exercises will be introduced and as well as a comprehensive home exercise program upon discharge, if needed, ?to ensure carryover of functional gains achieved in the clinic. This treatment plan has been reviewed and agreement upon by the patient.
--- NOTE | 2024-12-07 09:44 | OPREHPOC ---
Outpatient Therapy Plan of Care This is a Multidisciplinary Plan of Care that may contain components documented by all disciplines (PT, OT, and ST.) PT Problem 1 PT Problem #1 Knowledge Deficit PT Goal 1 Goal / Goal Update Patient to demonstrate independence with HEP for improved self-reliance of symptom management. Target Visit 4 PT Problem 2 PT Problem #2 Impaired Strength PT Goal 1 Goal / Goal Update 1. Patient to demonstrate R hip strength >=4+/5 for improved functional stability required for ADLs. 2. Pt. able to complete >=30 second hold during upper abdominal strength testing for improved motor control and trunk stability. Target Visit 10 PT Problem 3 PT Problem #3 Impaired Functional Mobility PT Goal 1 Goal / Goal Update 1. Patient to complete floor to/from waist transfers/lifts with no reported back pain or cueing required to ensure correct mechanics with functional lifting activities. Target Visit 10 PT Problem 4 PT Problem #4 Pain PT Goal 1 Goal / Goal Update The patient will perform repeated lumbar AROM flexion without peripheralization of pain for jew of functional movement. Target Visit 4
--- NOTE | 2024-12-28 15:45 | PCPTNOTE ---
Treatment canceled this date due to therapist out ill.
--- NOTE | 2025-01-11 08:02 | PCPTNOTE ---
pt called on 01/10 to cancel her appt for 01/11, stating she was out of town and [place] an airport
--- NOTE | 2025-01-22 08:10 | PCPTNOTE ---
pt utilized online system to request a reschedule of her appt. front office has left VM with no return yet. Will continue to attempt to contact pt to reschedule
--- NOTE | 2025-02-08 10:15 | PTOPDC ---
Assessment and note entered by Jaja Espinoza, PT Evaluation Information Assessment Status Discharge - Pt Not Present Diagnosis lumbar radiculopathy ICD-10 Condition Codes (PT) Radiculopathy, lumbar region M54.16 Onset September 2024 Subjective Information Pt reports having a tendon repair on her L ankle 10 years ago and she was NWB for 3 months. She thinks this knocked her out of alignment because the kneeler she was using was not at the right height. 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 She went to a chiro 6 years ago and it fixed the pain down her R leg. She is now complaining of the pain in her back and down her R leg posteriorly and into her toes. She reports increased numbness and tingling with prolonged walking and standing. She has been able to tolerate working around her home and shopping with a compression back brace. She has had an injection and steroid pack with minimal relief. Assessment PT Clinical Summary Attempted to contact pt multiple times to reschedule future follow ups. Pt stated she has been out of town working a lot and would eventually call back to get on the schedule. However, no further contact with the pt was made. Pt has not been seen by PT since 01/15/25 and will be discharged from PT this date. Plan of Care PT Services Indicated Yes
--- NOTE | 2025-02-08 10:18 | PTOPDC ---
Assessment and note entered by Jaja Espinoza, PT Evaluation Information Assessment Status Discharge - Pt Not Present Diagnosis lumbar radiculopathy ICD-10 Condition Codes (PT) Radiculopathy, lumbar region M54.16 Onset September 2024 Subjective Information Attempted to contact pt multiple times to reschedule future follow ups. Pt stated she has been out of town working a lot and would eventually call back to get on the schedule. However, no further contact with the pt was made. Assessment PT Clinical Summary Attempted to contact pt multiple times to reschedule future follow ups. Pt stated she has been out of town working a lot and would eventually call back to get on the schedule. However, no further contact with the pt was made. Pt has not been seen by PT since 01/15/25 and will be discharged from PT this date. Plan of Care PT Services Indicated Yes
== END 2025-02-08 11:32 | disposition home or self-care (01) ==
LOC: ANHGOSHPT 08:00
PROVIDERS: PCP Internal Medicine; Visit Provider Clinical Nurse Specialist
DX: M54.41 Lumbago with sciatica, right side (principal); M54.2 Cervicalgia
CPT/HCPCS: 97110; 97112; 97140; 97161; 97530

== ENCOUNTER 2025-06-07 11:37 | Outpatient (CLI) | payer MEDICARE, OTHER, SELFPAY ==
--- OUTSIDE RECORDS SUMMARY | 2025-06-07 11:40 | XMS_ITS | Clinical Summary ---
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
--- OUTSIDE RECORDS SUMMARY | 2025-06-07 11:40 | XMS_ITS | Clinical Summary ---
Author Organization [facility] Address [address] [place] [address] Care Team Providers Care Business Professor Name Role Phone Unavailable Primary Care Provider Unavailabl e Social History Tobacco Use Types Packs/Day Years Used Date Smoking Tobacco: Never Assessed Comments Unknown Sex and Gender Information Value Date Recorded Sex Assigned at Not on file Legal Sex Female 4:02 PM EST Gender Identity Not on file Sexual Orientation Not on file Plan of Treatment Not on file Medical Devices Not on file Insurance MEDICARE
[2025-06-07 15:16] LABS: Alanine Aminotransferase 31 U/L (6-35); Albumin Level 4.1 g/dL (3.5-5.1); Alkaline Phosphatase 60 U/L (38-126); Anion Gap 3 mmol/L (4-12); Aspartate Amino Transferase 26 U/L (14-36); Bilirubin,Total 1.0 mg/dL (0.2-1.3); Blood Urea Nitrogen 20 mg/dL (7-17); Calcium 9.5 mg/dL (8.4-10.2); Carbon Dioxide 24 mmol/L (22-30); Chloride 109 mmol/L (98-107); Estimated Glomerular Filt Rate > 60; Glucose 89 mg/dL (65-110); Potassium 4.2 mmol/L (3.4-5.0); Sodium 136 mmol/L (137-145); Total Protein 6.7 g/dL (6.3-8.2)
== END 2025-06-07 11:38 | disposition home or self-care (01) ==
LOC: ANHGOSHLAB 11:38
PROVIDERS: PCP Internal Medicine; Visit Provider Clinical Nurse Specialist
DX: E83.52 Hypercalcemia (principal)
CPT/HCPCS: 36415; 80053